=== PATIENT | female | born 2005 | race Two or more races ===

== ENCOUNTER 2024-08-03 08:06 | Emergency (ER) | payer MEDICAID, SELFPAY ==
[2024-08-03 08:17] VITALS: BP 116/82; PULSE 82; RESP 16; TEMP 37.1; O2SAT 99; BMI 21.9
--- NOTE | 2024-08-03 08:19 | PD.EDALLER ---
ED Allergic Reaction RME/HPI General Chief complaint: Allergic Reaction Stated complaint: HIVES/REDNESS/SWELLING TO SCALP Time Seen by Provider: 08/03/24 08:23 Source: patient Arrival date/time: 08/03/24 08:06 19-year-old female with no known medical history presents to the emergency room with a chief complaint of swelling, hives, redness to her scalp. Patient states she dyed her hair yesterday and is having an allergic reaction to the dye. Patient denies any shortness of breath or difficulty breathing. Mode of arrival: ambulatory Limitations: no limitations Related Data Previous Rx's ?Medication ?Instructions ?Recorded acetaminophen 325 mg capsule 650 mg (2 x 325 mg) PO QID PRN 08/03/24 fever or pain 7 days #30 caps diphenhydramine HCl 25 mg capsule 25 mg PO BID PRN itching #7 caps 08/03/24 hydrocortisone acetate-aloe vera 2 1 applic topical BID #60 grams 08/03/24 % lotion Allergies Allergy/AdvReac Type Severity Reaction Status Date / Time ibuprofen Allergy Rash Verified 08/03/24 08:10 Review of Systems Review of Systems Systems Reviewed: All systems reviewed, normal except as documented Constitutional Constitutional: Reports system reviewed and no additional complaints, except as documented, Denies fatigue, Denies fever(s), Denies headache(s) and Denies weakness Eyes Eyes: Reports system reviewed and no additional complaints, except as documented, Denies blurry vision and Denies change in vision ENT Ears, Nose, Mouth, and Throat: Reports system reviewed and no additional complaints, except as documented, Denies otalgia, Denies headache(s), Denies nasal congestion, Denies throat swelling and Denies vertigo Cardiovascular Cardiovascular: Reports system reviewed and no additional complaints, except as documented, Denies chest pain, Denies dyspnea and Denies dyspnea on exertion Respiratory Respiratory: Reports system reviewed and no additional complaints, except as documented, Denies chest congestion, Denies cough, Denies dyspnea, Denies dyspnea on exertion and Denies wheezing Gastrointestinal Gastrointestinal: Reports system reviewed and no additional complaints, except as documented, Denies abdominal pain, Denies cramping, Denies nausea and Denies vomiting Genitourinary Genitourinary: Reports system reviewed and no additional complaints, except as documented Musculoskeletal Musculoskeletal: Reports system reviewed and no additional complaints, except as documented and Denies back pain Integumentary/Breasts Skin/Breast: Reports system reviewed and no additional complaints, except as documented, Reports pruritus, Reports rash and Denies wounds Neurologic Neurologic: Reports system reviewed and no additional complaints, except as documented, Denies confusion, Denies headache(s), Denies lack of coordination, Denies vertigo and Denies weakness Psychiatric Psychiatric: Reports system reviewed and no additional complaints, except as documented, Denies anxiety, Denies confusion, Denies depression, Denies paranoia, Denies suicidal ideation and Denies tactile hallucinations Endocrine Endocrine: Reports system reviewed and no additional complaints, except as documented and Denies fatigue Hematologic/Lymphatic Hematologic/Lymphatic: Reports system reviewed and no additional complaints, except as documented and Denies lymphadenopathy Allergic/Immunologic Allergic/Immunologic: Reports system reviewed and no additional complaints, except as documented, Denies throat swelling, Denies urticaria and Denies wheezing Past Medical History Social History SMOKING STATUS: Never smoker ED Exam General Limitations: Present no limitations General appearance: Present alert and in no apparent distress Head Head exam: Present atraumatic, normocephalic and normal inspection Expanded Head Exam Head exam physical: Present other (Rash to the scalp) Head image: 1. Erythemic, pruritic, rash to the scalp Eye Eye exam: Present normal appearance, PERRL and EOMI ENT ENT exam: Present normal exam, normal oropharynx and mucous membranes moist Neck Neck exam: Present normal inspection, full ROM and trachea midline Chest Chest inspection: Present normal inspection and symmetric chest wall rise Respiratory Respiratory exam: Present normal lung sounds bilaterally Cardiovascular Cardiovascular exam: Present regular rate, normal rhythm and normal heart sounds Abdominal Exam Abdominal exam: Present soft and normal bowel sounds Extremities Exam Extremities exam: Present normal inspection and full ROM Back Exam Back exam: Present normal inspection and full ROM Neurological Exam Neurological exam: Present alert, oriented X3 and CN II-XII intact Psychiatric Psychiatric exam: Present normal affect and normal mood Skin Skin exam: Present warm, dry, intact and normal color Course Quality Measures none Orders Category Date Time Status Dexamethasone Inj [Decadron Inj] Med 08/03/24 08:19 Discontinued 10 mg PO X1 ONE DiphenhydrAMINE [Benadryl] Med 08/03/24 08:19 Discontinued 25 mg PO X1 ONE Famotidine [Pepcid] Med 08/03/24 08:19 Discontinued 20 mg PO X1 ONE Vital Signs Vital signs: Vital Signs Temperature 98.7 F 08/03/24 08:17 Pulse Rate 82 08/03/24 08:17 Respiratory Rate 16 08/03/24 08:17 Blood Pressure 116/82 08/03/24 08:17 Pulse Oximetry (%) 99 08/03/24 08:17 Oxygen Delivery Method Room Air 08/03/24 08:17 O2 saturation within normal limits Allergic Reaction MDM Narrative MDM Narrative:: 19-year-old female with no known medical history presents to the emergency room with a chief complaint of swelling, hives, redness to her scalp. Patient states she dyed her hair yesterday and is having an allergic reaction to the dye. Patient denies any shortness of breath or difficulty breathing. Clinically the patient appears nontoxic in no apparent distress. Physical examination shows an erythemic pruritic rash to the scalp of her head. The patient has clear bilateral lung sounds with no difficulty breathing stridor or any respiratory distress. Antihistamines were given and the patient was reevaluated in 45 minutes with mild improvement to her symptoms however patient states it is no longer itchy. Patient was educated to no longer use this hair dye and to return to the emergency room for any evidence of worsening signs or symptoms. Patient was educated to follow-up with primary care provider the next 24 to 48 hours Patient data External records reviewed:: [facility] previous records Clinical information provided by:: patient Social determinants that could affect healthcare access:: none Patient has the following chronic illnesses:: No chronic illness How is presenting disease/condition affected by chronic disease/condition?: no chronic disease Evaluation data The following diagnostics were reviewed and interpreted by me:: lab results and radiology exam(s) Lab and/or radiology exams considered but not ordered:: Labs and radiology exams considered and ordered Interpretation Summary: N/A Medications / Prescriptions Medications or Prescriptions considered but not ordered:: Medication given Medication administrations:: Medication Administration History Discontinued Medications Dexamethasone Sodium Phosphate (Dexamethasone Sod Phos Inj 10 Mg/Ml Vial) 10 mg PO X1 ONE Stop: 08/03/24 08:20 Last Admin: 08/03/24 08:27 Dose: 10 mg Documented By: MARLY Diphenhydramine HCl (Diphenhydramine Elix 25 Mg/10 [place] [facility] [place] mg PO X1 ONE Stop: 08/03/24 08:20 Last Admin: 08/03/24 08:27 Dose: 25 mg Documented By: MARLY Famotidine (Famotidine 20 Mg Tablet) 20 mg PO X1 ONE Stop: 08/03/24 08:20 Last Admin: 08/03/24 08:26 Dose: 20 mg Documented By: MARLY Medication given Consultations Consultation(s) initiated? (list below): No Diagnosis Differential Diagnosis allergic reaction: allergic reaction, contact dermatitis and urticaria Most likely diagnosis given after review of the tests above:: Contact dermatitis Admission Indicated Admission indicated?: not indicated Admission Request Was there a request for admission?: No Disposition Plan Disposition Plan: Discharge Discharge Attestation Discharge Attestation: The patient and all family members were given an opportunity to ask questions and understood the discharge instructions. Discharge instructions specifically effects, indications for sooner follow up or return to the emergency department, and the expected course of current diagnosis. Patient condition: Stable Discharge Plan Plan Patient Disposition: HOME (Self Care) Disposition Comment: Stable Prescriptions/Referrals Prescriptions/Med Rec: New hydrocortisone acet-aloe vera 2 % lotion 1 applic topical BID Qty: 60 0RF acetaminophen 325 mg capsule 650 mg PO QID PRN (Reason: fever or pain) 7 Days Qty: 30 0RF diphenhydramine HCl 25 mg capsule 25 mg PO BID PRN (Reason: itching) Qty: 7 0RF Referrals: Davidson Schwartz MD [Primary Care Provider] - In 1 week Problem List Clinical Impression: Contact dermatitis Patient/Caregiver Discharge Instructions Education Materials: Understanding Contact Dermatitis, ED Contact Dermatitis Additional Instructions: Please follow-up with your primary care provider in the next 24 to 48 hours. The hair dye that she used caused some contact dermatitis to your scalp. Medication was sent to your pharmacy to help alleviate the symptoms. For any evidence of worsening signs or symptoms return to the emergency room immediately Print Language: Yakut Stand Alone Forms: [employer] Award Info., Patient Portal Info Letter PA/CHACORTA Supervising Physician PA/CHACORTA Supervising Physician: Dr. Inman
[2024-08-03] MEDS: FAMOTIDINE 20 MG TABLET PO (08:26)
[2024-08-03] MEDS: DiphenhydrAMINE ELIX 25 MG/10 ML UDC PO (08:27)
[2024-08-03] MEDS: DEXAMETHASONE SOD PHOS INJ 10 MG/ML VIAL PO (08:27)
== END 2024-08-03 10:43 | disposition home or self-care (01) ==
PROVIDERS: Emergency Provider Emergency Medicine; PCP Family Medicine
DX: L25.9 Unspecified contact dermatitis, unspecified cause (principal)
CPT/HCPCS: 99282; J1100; A9270

== ENCOUNTER 2024-08-03 21:04 | Emergency (ER) | payer MEDICAID, SELFPAY ==
[2024-08-03 21:05] VITALS: BMI 21.9
[2024-08-03 21:48] VITALS: BP 121/78; PULSE 78; RESP 18; TEMP 36.7; O2SAT 98
--- NOTE | 2024-08-03 21:57 | EDNOTE_ITS ---
ED Allergic Reaction RME/HPI General Chief complaint: Allergic Reaction Stated complaint: FU on allergy from this AM: swelling to face Time Seen by Provider: 08/03/24 21:14 Source: patient, family, RN notes reviewed and old records reviewed Arrival date/time: 08/03/24 21:04 Mode of arrival: ambulatory Limitations: no limitations RME / HPI RME / HPI narrative: 19yof presents to ED for allergic reaction to hair dye, evaluated in ED this morning for same complaint. Patient reports swelling now spread to forehead and bilateral eyes. No tongue/throat swelling, shortness of breath or N/V. Benadryl last taken at 1800 with mild relief. Related Data Previous Rx's ?Medication ?Instructions ?Recorded acetaminophen 325 mg capsule 650 mg (2 x 325 mg) PO QID PRN 08/03/24 fever or pain 7 days #30 caps diphenhydramine HCl 25 mg capsule 25 mg PO BID PRN itching #7 caps 08/03/24 diphenhydramine HCl 25 mg capsule 50 mg (2 x 25 mg) PO TID PRN 08/03/24 (Benadryl) itching or rash #30 caps famotidine 20 mg tablet (Pepcid) 40 mg (2 x 20 mg) PO QDAY 1 week 08/03/24 #14 tabs hydrocortisone acetate-aloe vera 2 1 applic topical BID #60 grams 08/03/24 % lotion prednisone 50 mg tablet 50 mg PO QDAY #5 tabs 08/03/24 Allergies Allergy/AdvReac Type Severity Reaction Status Date / Time ibuprofen Allergy Rash Verified 08/03/24 08:10 Review of Systems Review of Systems Systems Reviewed: All systems reviewed, normal except as documented Constitutional Constitutional: Denies chills and Denies fever(s) ENT Ears, Nose, Mouth, and Throat: Denies throat swelling, Denies tongue swelling and Reports other (Reports facial swelling) Cardiovascular Cardiovascular: Denies dyspnea Respiratory Respiratory: Denies dyspnea Gastrointestinal Gastrointestinal: Denies nausea and Denies vomiting Integumentary/Breasts Skin/Breast: Reports erythema, Reports pruritus and Reports rash Allergic/Immunologic Allergic/Immunologic: Denies throat swelling and Denies tongue swelling Past Medical History Surgical History OTHER SURGICAL HX: Denies past surgical history Social History SMOKING STATUS: Never smoker SUBSTANCE USE: does not use ALCOHOL: Never Past Medical History Comments PMH COMMENT: Denies past medical history ED Exam General Limitations: Present no limitations General appearance: Present alert and in no apparent distress Head Head exam: Present atraumatic and normocephalic Eye Eye exam: Present normal appearance, PERRL and EOMI ENT ENT exam: Present normal oropharynx (Airway patent) and other (Mild upper facial swelling) Neck Neck exam: Present normal inspection and full ROM Chest Chest inspection: Present normal inspection and symmetric chest wall rise Respiratory Respiratory exam: Present normal lung sounds bilaterally; Absent respiratory distress, wheezes or stridor Cardiovascular Cardiovascular exam: Present regular rate and normal rhythm Extremities Exam Extremities exam: Present normal inspection and full ROM Neurological Exam Neurological exam: Present alert and oriented X3 Psychiatric Psychiatric exam: Present normal affect and normal mood Skin Skin exam: Present other (Erythema and tiny vesicles surrounding hairline) Course Quality Measures none Orders Category Date Time Status Dexamethasone Inj [Decadron Inj] Med 08/03/24 21:58 Discontinued 10 mg PO X1 ONE DiphenhydrAMINE [Benadryl] Med 08/03/24 21:58 Discontinued 50 mg PO X1 ONE Famotidine [Pepcid] Med 08/03/24 21:58 Discontinued 40 mg PO X1 ONE Vital Signs Vital signs: Vital Signs Temperature 98.1 F 08/03/24 21:48 Pulse Rate 78 08/03/24 21:48 Respiratory Rate 18 08/03/24 21:48 Blood Pressure 121/78 08/03/24 21:48 Pulse Oximetry (%) 98 08/03/24 21:48 Oxygen Delivery Method Room Air 08/03/24 21:48 Allergic Reaction MDM Narrative MDM Narrative:: 19yof presents to ED for allergic reaction to hair dye, evaluated in ED this morning for same complaint. Patient reports swelling now spread to forehead and bilateral eyes. No tongue/throat swelling, shortness of breath or N/V. Benadryl last taken at 1800 with mild relief. Patient reassessed. Symptoms improved after medications administered in ED. Patient is well-appearing, no evidence of airway compromise or respiratory distress. Symptomatic treatment discussed. Will Rx 5-day course of prednisone. Stable for discharge, RTED precautions given Patient data External records reviewed:: [facility] previous records (ED visit 08/03/2024 for contact dermatitis) Clinical information provided by:: patient and parent Social determinants that could affect healthcare access:: none Patient has the following chronic illnesses:: None How is presenting disease/condition affected by chronic disease/condition?: no chronic disease Evaluation data The following diagnostics were reviewed and interpreted by me:: other (specify) (None) Lab and/or radiology exams considered but not ordered:: None Interpretation Summary: na Medications / Prescriptions Medications or Prescriptions considered but not ordered:: No antibiotics recommended at this time Medication administrations:: Medication Administration History Discontinued Medications Dexamethasone Sodium Phosphate (Dexamethasone Sod Phos Inj 10 Mg/Ml Vial) 10 mg PO X1 ONE Stop: 08/03/24 21:59 Last Admin: 08/03/24 22:12 Dose: 10 mg Documented By: Diphenhydramine HCl (Diphenhydramine 25 Mg Capsule) 50 mg PO X1 ONE Stop: 08/03/24 21:59 Last Admin: 08/03/24 22:12 Dose: 50 mg Documented By: Famotidine (Famotidine 20 Mg Tablet) 40 mg PO X1 ONE Stop: 08/03/24 21:59 Last Admin: 08/03/24 22:11 Dose: 40 mg Documented By: Above medications administered in ED Consultations Consultation(s) initiated? (list below): No Diagnosis Differential Diagnosis allergic reaction: anaphylaxis, allergic reaction, angioedema, contact dermatitis, adverse reaction to drug, viral enanthem and urticaria Most likely diagnosis given after review of the tests above:: Contact dermatitis, allergic reaction Admission Indicated Admission indicated?: not indicated Admission Request Was there a request for admission?: No Disposition Plan Disposition Plan: Discharge Discharge Attestation Discharge Attestation: The patient and all family members were given an opportunity to ask questions and understood the discharge instructions. Discharge instructions specifically effects, indications for sooner follow up or return to the emergency department, and the expected course of current diagnosis. Patient condition: Stable Discharge Plan Plan Patient Disposition: HOME (Self Care) Patient condition on transfer: Stable Prescriptions/Referrals Prescriptions/Med Rec: New prednisone 50 mg tablet 50 mg PO QDAY Qty: 5 0RF famotidine [Pepcid] 20 mg tablet 40 mg PO QDAY 7 Days Qty: 14 0RF diphenhydramine HCl [Benadryl] 25 mg capsule 50 mg PO TID PRN (Reason: itching or rash) Qty: 30 0RF No Action hydrocortisone acet-aloe vera 2 % lotion 1 applic topical BID Qty: 60 0RF acetaminophen 325 mg capsule 650 mg PO QID PRN (Reason: fever or pain) 7 Days Qty: 30 0RF diphenhydramine HCl 25 mg capsule 25 mg PO BID PRN (Reason: itching) Qty: 7 0RF Problem List Clinical Impression: Allergic reaction, Contact dermatitis Patient/Caregiver Discharge Instructions Education Materials: ED Contact Dermatitis Additional Instructions: Benadryl 50mg (2 capsules) can be taken every 4 hours as needed for rash or itching. Cool compresses or ice pack can help with the swelling. Print Language: Palestinian Stand Alone Forms: [employer]un Award Info., Patient Portal Info Letter PA/CORPORATE REPRESENTATIVE Supervising Physician PA/CORPORATE REPRESENTATIVE Supervising Physician: [place]
[2024-08-03] MEDS: FAMOTIDINE 20 MG TABLET 40 MG PO (22:11)
[2024-08-03] MEDS: DEXAMETHASONE SOD PHOS INJ 10 MG/ML VIAL PO (22:12)
[2024-08-03] MEDS: DiphenhydrAMINE 25 MG CAPSULE 50 MG PO (22:12)
== END 2024-08-03 23:24 | disposition home or self-care (01) ==
LOC: SERX 23:15
PROVIDERS: Emergency Provider Emergency Medicine
DX: L23.4 Allergic contact dermatitis due to dyes (principal)
CPT/HCPCS: 99282; J1100; A9270

== ENCOUNTER 2024-12-28 13:30 | Outpatient (AMB) | payer MEDICAID, SELFPAY ==
[2024-12-28 13:56] VITALS: BP 108/65; PULSE 89; RESP 16; TEMP 37.2; O2SAT 97; BMI 21.4
--- NOTE | 2024-12-28 13:56 | OBCLNT_ITS ---
Vital Signs 12/28/24 13:56 Height 1.68 m Height Method Stated Weight 60.384 kg Weight Measurement Method Standing Scale BMI 21.4 BP 108/65 Blood Pressure Source Automatic Cuff Blood Pressure Location Right Upper Arm Position Sitting Respiration 16 Pulse 89 Pulse Source Monitor Temp 99 F Temp Source Oral Pulse Oximetry (%) 97 Oxygen Delivery Method Room Air Allergies/Home Meds Allergies & Medications Allergies ibuprofen Allergy (Verified 12/28/24 13:57) Rash Medication Reconciliation diphenhydramine HCl 25 mg capsule 25 mg PO BID PRN itching #7 caps 08/03/24 [Rx Confirmed 12/28/24] diphenhydramine HCl 25 mg capsule (Benadryl) 50 mg (2 x 25 mg) PO TID PRN itching or rash #30 caps 08/03/24 [Rx Confirmed 12/28/24] hydrocortisone acetate-aloe vera 2 % lotion 1 applic topical BID #60 grams 08/03/24 [Rx Confirmed 12/28/24] prednisone 50 mg tablet 50 mg PO QDAY #5 tabs 08/03/24 [Rx Confirmed 12/28/24] Intake Visit Data Collection New Patient or Established: Established Patient (seen at [facility] within 3 years) Reason for Visit:: INITIAL CARE Seen by Clinical Staff ONLY (RN/MA): No Retail Field Representative Required: No Do You Feel Safe at Home: Yes Authorities Contacted: N/A PCP or OBGYN visit in last 3 months: Yes Hx Now: Yes Are you currently on any form of Control: No Last menstrual period: 10/10/24 Pain Present Currently: No Pain Scale Used: Chen-Marrero/Numerical Pain scale:: 0 Smoking Status Smoking Status: Never smoker Questionnaires Covid-19 Vaccine Questionnaire Has patient been vacinated for Covid-19 Have you been vacinated for Covid-19: Yes PHQ-9 PHQ-2 Over the last 2 weeks, how often have you been bothered by any of the following problems? 1. Little interest or pleasure in doing things: not at all 2. Feeling down, depressed, or hopeless: not at all Total score: 0 PHQ-9 3. Trouble falling or staying asleep, or sleeping too much: Not at all 4. Feeling tired or having little energy: Not at all 5. Poor appetite or overeating: Not at all 6. Feeling bad about yourself - or that you are a failure or have let yourself or your family down: Not at all 7. Trouble concentrating on things, such as reading the newspaper or watching television: Not at all 8. Moving or speaking so slowly that other people could have noticed? - Or the opposite - being so fidgety or restless that you have been moving around a lot more than usual: not at all 9. Thoughts that you would be better off or of hurting yourself in some way: Not at all Total score: 0 Source: Developed by Drs. Rosendo Jones, Diane Guzman, Justin Salinas and colleagues, with an educational william from [employer]. Depression screen completed yes Social History Living Situation History Lives With: Family Housing: House Tobacco History Smoking Status: Never smoker Second Hand Smoke Exposure: No Alcohol History Alcohol Intake: Never Domestic Abuse History Do You Feel Safe at Home: Yes History of Present Illness HPI Narrative 19-year-old 1 para 0 for OBI. Patient's last. Was October 10, 2024. Patient reports menses every month. This gives EDC 07/19/2025. Patient is 11 weeks 1. Denies any first trimester discomforts. Patient is taking vitamins. She denies any SAB complaints like bleeding or cramping. She denies any existence of chronic illnesses. Denies any surgeries. Denies social habits. Patient complains of headaches that are improved with Tylenol. This is a planned . Father the baby is involved no other complaints OB Initial Visit OB Flowsheet OB Flowsheet Initial Weight: Not Recorded Date -?-?-?-?-?-?-?-?-?-?-?-?- EGA Weight BP Alb Glu CTX Pres Fundal ht FHR Mov Dilation Station Effacement Hx Notes Visit Note 12/28/24 -?-?-?-?-?-?-?-?-?-?-?-?- 11w 2d 60.384 kg 108/65 absent unknown 11 145 absent c/o headache. improved with tylenol. denies sab complaints. sure dates. no 1st tri discomfort. OB panel and carrier screen today, schedule MFM anatomy scan. discuss sab precaution, increase fluid, rtc 4 week obc Menstrual History Menstrual reliability: definite Flow: normal Menstrual regularity: regular Monthly: Yes Age at menarche: 14 On control pills at conception: No Associated symptoms (LMP): Reports nausea, fatigue and breast tenderness OB History : 1 # of Living Children: 0 Infection History & Risk Evaluation History of STDs: none Genetic Screening & History Genetic Screening/Teratology Counseling - Includes patient, baby's father, or anyone in either family with: 1. Patient's age 35 years or older as of estimated date of delivery: No 2. Thalassemia (Hungarian, Indonesian, Mediterranean, or Background); MCV less than 80: No 3. Neural Tube Defect (Meningomyelocele, Spina Bifida, or Anencephaly): No 4. Congenital Heart Defect: No 5. Down Syndrome: No 6. Lobo-Sachs (Ashkenazi Restoration, Cajun, English [place]): No 7. Johnna Disease (Ashkenazi Restoration): No 8. Familial Dysautonomia (Ashkenazi Restoration): No 9. Sickle Cell Disease or Trait (): No 10. Hemophilia or other blood disorders: No 11. Muscular Dystrophy: No 12. Cystic Fibrosis: No 13. Lonnie's Chorea: No 14. Mental Retardation/Autism: No 15. Other inherited genetic or chromosomal disorder: No 16. Maternal Metabolic Disorder (EG,TYPE 1 Diabetes, PKU): No 17. Patient or baby's father had a child with defects not listed above: No 18. Recurrent loss or a stillbirth: No 19. Medications (including supplements, vitamins, herbs or otc drugs)/illicit/recreational drugs/alcohol since last menstrual period: No 20. Any other: No Infection History 1. Live with someone with TB or exposed to TB: No 2. Rash or viral illness since last menstrual period: No 3. Hepatitis B,C: No Other (see comments) Source: [employer] Review of Systems Review of Systems Systems Reviewed: All systems reviewed, normal except as documented Constitutional Constitutional: Reports fatigue Gastrointestinal Gastrointestinal: Reports nausea Endocrine Endocrine: Reports fatigue Exam General Limitations: no limitations General Appearance: alert, in no apparent distress, comfortable, cooperative, healthy appearing, well developed and well groomed Head Head exam: atraumatic, normocephalic and normal inspection Eye Eye exam: Present normal appearance, PERRL and EOMI ENT ENT exam: Present normal exam, normal oropharynx and mucous membranes moist Neck Neck exam: Present normal inspection, full ROM and trachea midline Chest Chest inspection: Present normal inspection and symmetric chest wall rise Resp Respiratory exam: Present normal lung sounds bilaterally Card Cardiovascular exam: Present regular rate, normal rhythm and normal heart sounds Abdominal Abdominal exam: Present soft and normal bowel sounds Extremities Extremities exam: Present normal inspection and full ROM Back Back exam: Present normal inspection and full ROM Neuro Neurological exam: Present alert, oriented X3 and CN II-XII intact Psych Psychiatric exam: Present normal affect and normal mood Skin Skin exam: Present warm, dry, intact and normal color Office Procedures OB Clinic LOC & Office Proc's Nursing/Assessment Patient Status: Established Patient OB Clinic Nursing Assessment: Medication Reconciliation, Update PMH in EMR and Vital Signs OB Clinic Coordination of Care: Complex Care and Chronic Disease 1-5, Consent,records obtained, informed consent, Education Simp Pt/Fam, Lab and Imaging orders, Results/Orders obtained and Staff clarify orders Special Needs: Heart tones Established Patient Charge Established Patient Point Assignment: 135 Established Patient Point Charge: EP Level 4 (120-155) Assessment & Plan Diagnosis / Problem List (1) Encounter for supervision of normal first , first trimester: Status: Acute (2) High risk case management patient: Status: Acute Plan Discussed SAB precautions. Reviewed dates. Schedule MFM anatomy scan. I ordered OB panel with NIPT and carrier screens. Continue prenatals. Increase fluids. Return in 4 weeks OB Additional Plan Follow Up: 4 Weeks (obc)
== END 2024-12-28 14:56 | disposition home or self-care (01) ==
LOC: HODSOBC 13:30
PROVIDERS: PCP Advanced Practice Midwife; Referring Provider Advanced Practice Midwife; Supervising Provider Advanced Practice Midwife; Visit Provider Advanced Practice Midwife
DX: Z34.01 Encounter for supervision of normal first pregnancy, first trimester (principal); Z3A.11 11 weeks gestation of pregnancy; Z79.52 Long term (current) use of systemic steroids
CPT/HCPCS: 99214; G0463

== ENCOUNTER 2025-04-04 10:47 | Outpatient (AMB) | payer MEDICAID, SELFPAY ==
[2025-04-04 10:58] VITALS: BP 123/70; PULSE 78; RESP 16; TEMP 36.2; O2SAT 98; BMI 21.7
--- NOTE | 2025-04-04 10:58 | OBCLNT_ITS ---
Vital Signs 04/04/25 10:58 Height 1.68 m Height Method Stated Weight 61.235 kg Weight Measurement Method Standing Scale BMI 21.7 BP 123/70 Blood Pressure Source Automatic Cuff Blood Pressure Location Left Upper Arm Position Sitting Respiration 16 Pulse 78 Pulse Source Monitor Temp 97.2 F Temp Source Oral Pulse Oximetry (%) 98 Oxygen Delivery Method Room Air Allergies/Home Meds Allergies & Medications Allergies ibuprofen Allergy (Verified 04/04/25 10:59) Rash Medication Reconciliation diphenhydramine HCl 25 mg capsule 25 mg PO BID PRN itching #7 caps 08/03/24 [Rx Confirmed 04/04/25] diphenhydramine HCl 25 mg capsule (Benadryl) 50 mg (2 x 25 mg) PO TID PRN itching or rash #30 caps 08/03/24 [Rx Confirmed 04/04/25] hydrocortisone acetate-aloe vera 2 % lotion 1 applic topical BID #60 grams 08/03/24 [Rx Confirmed 04/04/25] prednisone 50 mg tablet 50 mg PO QDAY #5 tabs 08/03/24 [Rx Confirmed 04/04/25] Intake Visit Data Collection New Patient or Established: Established Patient (seen at [facility] within 3 years) Reason for Visit:: OBC Seen by Clinical Staff ONLY (RN/MA): No Foreign Language Professor Required: No Do You Feel Safe at Home: Yes Authorities Contacted: N/A PCP or OBGYN visit in last 3 months: Yes Date of Last PCP or OBGYN visit: 12/28/24 Hx Now: Yes Are you currently on any form of Control: No Pain Present Currently: No Pain Scale Used: Chen-Marrero/Numerical Pain scale:: 0 Smoking Status Smoking Status: Never smoker Questionnaires Covid-19 Vaccine Questionnaire Has patient been vacinated for Covid-19 Have you been vacinated for Covid-19: No PHQ-9 PHQ-2 Over the last 2 weeks, how often have you been bothered by any of the following problems? 1. Little interest or pleasure in doing things: not at all 2. Feeling down, depressed, or hopeless: not at all Total score: 0 PHQ-9 3. Trouble falling or staying asleep, or sleeping too much: Not at all 4. Feeling tired or having little energy: Not at all 5. Poor appetite or overeating: Not at all 6. Feeling bad about yourself - or that you are a failure or have let yourself or your family down: Not at all 7. Trouble concentrating on things, such as reading the newspaper or watching television: Not at all 8. Moving or speaking so slowly that other people could have noticed? - Or the opposite - being so fidgety or restless that you have been moving around a lot more than usual: not at all 9. Thoughts that you would be better off or of hurting yourself in some way: Not at all Total score: 0 If you checked off any problems, how difficult have these problems made it for you to do your work, take care of things at home, or get along with other people?: not difficult at all Source: Developed by Drs. Rosendo Jones, Diane Guzman, Justin Salinas and colleagues, with an educational william from [employer] Depression screen completed yes Social History Living Situation History Lives With: Family Housing: House Tobacco History Smoking Status: Never smoker Second Hand Smoke Exposure: No Alcohol History Alcohol Intake: Never Domestic Abuse History Do You Feel Safe at Home: Yes Care OB Visit Log OB Flowsheet Initial Weight: Not Recorded Date -?-?-?-?-?-?-?-?-?-?-?-?- EGA Weight BP Alb Glu CTX Pres Fundal ht FHR Mov Dilation Station Effacement Hx Notes Visit Note 12/28/24 -?-?-?-?-?-?-?-?-?-?-?-?- 11w 2d 60.384 kg 108/65 absent unknown 11 145 absent c/o headache. improved with tylenol. denies sab complaints. sure dates. no 1st tri discomfort. OB panel and carrier screen today, schedule MFM anatomy scan. discuss sab precaution, increase fluid, rtc 4 week obc 04/04/25 -?-?-?-?-?-?-?-?-?-?-?-?- 25w 1d 61.235 kg 123/70 absent unknown 25 140 active Headaches improved. P oor compliance with vitamins and iron. Patient has a follow-up ultrasound at 32 weeks. No OB complaints. Denies leaking, denies bleeding, denies contractions 3 hr gtt. R efill vitamins and start iron twice a day. Increase fluids. Discussed diet and weight gain. Return in 4 weeks OB check QI Calculator Estimated Delivery Date Method Current WG Current Estimate 07/17/25 LMP (Certain) 25w 1d Other Estimates 07/17/25 Ultrasound #1 25w 1d Notes Visit Date: 04/04/25 Last Updated by: Taylor Thompson CNM A+,abs-,rpr;;nr, rub imm, hbsag-,hiv-,HC-, GC/CT-, , NIPT/CF/SMA: pending, 1 hr gtt: 142 sono: 02/27/25: 20wk. EDC: 07/17/25. final QI: 07/17/25 Visit Date: 12/28/24 Last Updated by: Taylor Thompson CNM 19 yo . lmp 10/10/24. EDC 07/19/25. PAP . Office Procedures OB Clinic LOC & Office Proc's Nursing/Assessment Patient Status: Established Patient OB Clinic Nursing Assessment: Medication Reconciliation, Update PMH in EMR and Vital Signs OB Clinic Coordination of Care: Education Complex Pt/Fam, Consent,records obtained, informed consent, Lab and Imaging orders, Results/Orders obtained and Staff clarify orders Special Needs: Heart tones Established Patient Charge Established Patient Point Assignment: 115 Established Patient Point Charge: EP Level 3 (80-115) Assessment & Plan Diagnosis / Problem List (1) Encounter for supervision of high risk in second trimester, antepartum: Status: Acute Plan 3-hour GTT. Discussed diet and weight. labor precautions. Repeat sono for growth at 32 weeks. Return in 4 weeks OB check Additional Plan Follow Up: 4 Weeks (obc)
== END 2025-04-04 11:55 | disposition home or self-care (01) ==
PROVIDERS: Supervising Provider Advanced Practice Midwife; Visit Provider Advanced Practice Midwife
DX: O09.92 Supervision of high risk pregnancy, unspecified, second trimester (principal); Z3A.25 25 weeks gestation of pregnancy; Z91.148 Patient's other noncompliance with medication regimen for other reason; Z88.6 Allergy status to analgesic agent
CPT/HCPCS: 99213; G0463

== ENCOUNTER 2025-04-28 21:39 | Inpatient (IN) | payer MEDICAID, SELFPAY ==
[2025-04-28] VITALS (28 sets, daily range): BP systolic 127; BP diastolic 75; PULSE 69–105; RESP 16–100; TEMP 36.8; O2SAT 93–100; BMI 22.3
--- NOTE | 2025-04-28 22:18 | XR_ITS ---
Examination: Complete OB ultrasound greater than 14 weeks Date and time of exam: April 28, 2025, 1055 hrs. Indications: Abdominal and pelvic pain today Findings: Viable intrauterine single fetus with single amniotic sac presentation cephalic Cardiac motion 137 BPM Placenta fundal grade 1 Umbilical cord insertion seen Amniotic fluid index 13.7 cm Cervix 3.4 cm Ovaries obscured by bowel gas. Composite estimated gestational age based on BPD, head circumference, abdominal circumference, femur length is 29 weeks 0 days Estimated weight 1191 g. Survey of intracranial anatomy, spinal anatomy, abdominal anatomy, four-chamber heart performed with no abnormalities identified. Impression: Viable intrauterine gestation cephalic presentation Placenta fundal grade 1 no abruption Estimated gestational age 29 weeks 0 days.
[2025-04-28 23:09] LABS: Collection Type, Urine Clean Catch
[2025-04-28 23:31] LABS: Bacteria,Urine Rare; Bilirubin,Urine Negative (Negative); Blood,Urine 3+ (Negative); Calcium Oxalate Crystals,Urine 3+; Clarity,Urine Turbid (Clear/Hazy); Glucose, Urine Negative (Negative); Ketones,Urine Negative (Negative); Leukocyte Esterase,Urine Positive (Negative); Nitrite,Urine Negative (Negative); PH,Urine 6.0 (5.0-7.0); Protein,Urine 1+ (Neg - Trace); RBC,Urine 1346 /hpf (0-3); Specific Gravity,Urine 1.025 (1.001-1.035); Squamous Epithelial Cell,Urine 12 /hpf (0-5); Urobilinogen,Urine 2.0 mg/dL (0.0-1.0); WBC,Urine 44 /hpf (0-5)
[2025-04-28 23:33] LABS: Color,Urine Lt-Orange (Lt Yel-Yel)
[2025-04-29] VITALS (20 sets, daily range): BP systolic 103–115; BP diastolic 59–69; PULSE 63–139; RESP 14–17; TEMP 36.7–36.8; O2SAT 92–100
--- NOTE | 2025-04-29 00:14 | XR_ITS ---
Examination: Retroperitoneal ultrasound, complete Technique: Multiple high resolution grayscale images of the retroperitoneum obtained, including kidneys and bladder. Exam date and time:April 29, 2025, 1229 hrs. Indications: Abdominal pain flank pain today Findings: Right kidney 13.0 cm cortex 1.8 cm Mild right hydronephrosis. 7 mm midpole right renal calculus Left kidney 10.9 cm cortex 2.6 cm No hydronephrosis No bladder mass or bladder calculi Bladder prevoid volume 180 cc Impression: Mild right hydronephrosis 7 mm mid right renal calculus
--- NOTE | 2025-04-29 00:20 | ESHP_ITS ---
Documentation for date of: 04/29/25 OB Labor/Induct. HPI History of Present Illness Chief complaint: Contractions and flank pain : 1 Para: 0 Term pregnancies: 0 pregnancies: 0 Living children: 0 History of Abortions: Spontaneous and Elective: 0 History of Vaginal deliveries: 0 History of sections: No History of : No QI: 07/17/25 Gestational Age (weeks): 28 Gestational Age (days): 2 History of present illness: 19-year-old 1 para 0 at 28 weeks and 2 days presented to labor and delivery triage with complaints of severe right flank pain contractions and nausea and vomiting of 1 day duration. Patient reported not taking in enough fluids and very dark and concentrated urine. She denies any contractions or leakage of fluid she did report seeing some blood when wiping after using the restroom. She does report adequate movements. As per her verbal report has been uncomplicated. History of Present Adequate Care: Yes Review of Systems Review of Systems Systems Reviewed: All systems reviewed, normal except as documented Past Medical History Surgical History SURGICAL: Negative Section Meds Home Medications and Allergies Allergies Allergy/AdvReac Type Severity Reaction Status Date / Time ibuprofen Allergy Intermediate Rash Verified 04/28/25 23:25 OB Exam Physical Exam Vital signs: Temp Pulse Resp BP Pulse Ox 98.2 F 86 16 127/75 100 04/28/25 21:58 04/28/25 21:58 04/28/25 21:58 04/28/25 21:58 04/29/25 00:15 Constitutional Constitutional: no acute distress Routine HEENT Exam Head: Present normocephalic and atraumatic Eye: Present EOMI and PERRL ENT: Present mucous membranes moist Routine Neck Exam Neck: Present supple and trachea midline Routine Cardiovascular Exam Cardiovascular: Present RRR Routine Abdominal Exam Abdominal: Present soft and normoactive bowel sounds Routine Extremities Exam Extremities: Present full ROM Routine Skin Exam Skin: Present intact, dry and warm Routine Neurological Exam Neurological: Present alert, oriented X3 and CN II-XII intact Routine Psychiatric Exam Psychiatric: Present normal affect and normal thought process OB Results Labs 04/29/25 04:00 Labs: Urine 04/28/25 Range/Units 22:00 Urine Color Lt-[place] A (Lt Yel-Yel) Urine Clarity Turbid A (Clear/Hazy) Urine pH 6.0 (5.0-7.0) Ur Specific [place] 1.025 (1.001-1.035) Urine Protein 1+ A (Neg - Trace) Urine Glucose (UA) Negative (Negative) OB Assessment & Plan Assessment and Plan (1) Encounter for supervision of high risk in second trimester, antepartum: Status: Acute (2) Pyelonephritis affecting : Status: Acute Assessment and plan: Admit to antepartum service for IV antibiotics and pain management for suspected complicated UTI/pyelonephritis based on clinical symptoms and UA findings Unasyn every 8 hours, p.o. pain medicines for pain management, IV only for breakthrough pain Intermittent monitoring every 6 hours Intensive IV fluid rehydration Discharge depending on clinical course.
[2025-04-29] MEDS: ONDANSETRON INJ 2 MG/ML INJ 2 ML 4 MG IV (01:09)
[2025-04-29] MEDS: DEXTROSE 5%-0.45% NS 1,000 ML 100 ML IV ×2 (01:11→18:44)
[2025-04-29] MEDS: ACETAMINOPHEN IVPB 1,000 MG/100 ML VIAL 250 MG IV (01:21)
--- NOTE | 2025-04-29 01:47 | PRELIM_ITS ---
Renal/Retroperitoneal ultrasound with Doppler. April 29, 2025 at 0029 hours Clinical history: Rule out renal stones. Technique: Duplex scan of bilateral kidneys was performed utilizing 2D grayscale imaging. Comparison: None available at the time of this report. Findings: Right: The right kidney measures 13 cm. There is mild hydronephrosis. Nonobstructing interpolar region renal calculus, measuring 0.7 cm. The corticomedullary differentiation is maintained. Left: The left kidney measures 10.9 cm and is unremarkable. There is no hydronephrosis or renal calculus. The corticomedullary differentiation is maintained. The urinary bladder is unremarkable. Bilateral UVJ jets demonstrated by Doppler. No abnormalities by Doppler. Impression: Nonobstructing right nephrolithiasis. Mild right hydronephrosis. Consider correlation with CT to assess for ureteral stones. Report Electronically Signed By: Chi Aguilar 04/29/2025 1:46:42 AM [EST]
[2025-04-29] MEDS: AMPICILLIN/SULBAC INJ 3 GM in SODIUM CHLORIDE 0.9% (POP) 100 ML IV ×4 (01:53→19:53)
[2025-04-29 04:38] LABS: Basophils # (Auto) 0.1 Thou/mm3 (0.0-0.2); Basophils % (Auto) 0 % (0-2.5); Eosinophils # (Auto) 0.0 Thou/mm3 (0.0-0.5); Eosinophils % (Auto) 0 % (0-10); Hematocrit 32.0 % (36.0-46.0); Hemoglobin 10.9 g/dL (12.0-16.0); Immature Granulocytes Auto 0.09 Thou/mm3 (0.00-0.00); Lymphocytes # (Auto) 1.8 Thou/mm3 (1.0-4.8); Lymphocytes % (Auto) 9 % (10-50); Mean Corpuscular HGB Conc 34.1 g/dl (31.0-37.0); Mean Corpuscular Hemoglobin 31.4 pg (25.0-35.0); Mean Corpuscular Volume 92 fL (80-100); Monocytes # (Auto) 0.8 Thou/mm3 (0.0-0.8); Monocytes % (Auto) 4 % (0-12); Neutrophils # (Auto) 17.6 Thou/mm3 (1.8-7.7); Neutrophils % (Auto) 86 % (37-80); Nucleated Red Blood Cell # 0.00 Thou/mm3 (0.00-0.00); Nucleated Red Blood Cell % 0 /100 WBC (0); Platelet Count 238 Thou/mm3 (140-440); RDW Standard Deviation 45.6 fL (36.4-46.3); Red Blood Count 3.47 Miln/mm3 (4.00-5.20); White Blood Count 20.4 Thou/mm3 (4.5-11.0)
--- NOTE | 2025-04-29 12:19 | PD.LDPN ---
Documentation for date of: 04/29/25 OB Labor Progress Note Pain Control Comments: Patient is a 19-year-old at 28 weeks admitted late last evening for flank pain. She states she has a history of kidney stones. No fevers chills but patient was in quite a bit of pain and had some nausea. She was admitted. Her urine revealed positive leukocyte esterase positive white cells positive red cells urine culture is pending. Patient had an elevated white count on admission of 20.4 with 86% neutrophils. She is admitted on Unasyn. She has been afebrile overnight. Today she is resting comfortably in bed. She has needed IV Tylenol once for pain and Zofran once for nausea. The plan will be to keep the patient utill tomorrow for observation and to await her urine culture results. Pelvic Exam Amniotic membrane status: Intact Contractions Monitor mode: External Contraction frequency: irritability Status status: Category l Assessment and Plan Plan OB labor note: continuous present management Comments: Continue antibiotics. Monitor for pain and fever. Recheck CBC in the morning. Await urine culture.
[2025-04-29] MEDS: DOCUSATE SOD 100 MG CAPSULE PO (20:26)
[2025-04-30] MEDS: AMPICILLIN/SULBAC INJ 3 GM in SODIUM CHLORIDE 0.9% (POP) 100 ML IV ×2 (01:03→06:59)
[2025-04-30 01:08] VITALS: BP 100/58; PULSE 57
[2025-04-30 01:15] VITALS: RESP 16; TEMP 36.9
[2025-04-30 05:12] VITALS: BP 102/56; PULSE 65
[2025-04-30] MEDS: DEXTROSE 5%-0.45% NS 1,000 ML 100 ML IV (05:42)
[2025-04-30 07:08] LABS: Basophils # (Auto) 0.0 Thou/mm3 (0.0-0.2); Basophils % (Auto) 0 % (0-2.5); Eosinophils # (Auto) 0.1 Thou/mm3 (0.0-0.5); Eosinophils % (Auto) 1 % (0-10); Hematocrit 28.0 % (36.0-46.0); Hemoglobin 9.2 g/dL (12.0-16.0); Immature Granulocytes Auto 0.05 Thou/mm3 (0.00-0.00); Lymphocytes # (Auto) 1.5 Thou/mm3 (1.0-4.8); Lymphocytes % (Auto) 14 % (10-50); Mean Corpuscular HGB Conc 32.9 g/dl (31.0-37.0); Mean Corpuscular Hemoglobin 30.4 pg (25.0-35.0); Mean Corpuscular Volume 92 fL (80-100); Monocytes # (Auto) 0.5 Thou/mm3 (0.0-0.8); Monocytes % (Auto) 4 % (0-12); Neutrophils # (Auto) 8.9 Thou/mm3 (1.8-7.7); Neutrophils % (Auto) 81 % (37-80); Nucleated Red Blood Cell # 0.00 Thou/mm3 (0.00-0.00); Nucleated Red Blood Cell % 0 /100 WBC (0); Platelet Count 206 Thou/mm3 (140-440); RDW Standard Deviation 45.6 fL (36.4-46.3); Red Blood Count 3.03 Miln/mm3 (4.00-5.20); White Blood Count 11.1 Thou/mm3 (4.5-11.0)
--- NOTE | 2025-04-30 08:21 | ESPR_ITS ---
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 She has completed over 24 hours of IV antibiotics. She is afebrile. Patient does endorse a personal history of kidney stones. Has not required any IV pain medications. tracing has been appropriate. Exam Vital Signs Temp Pulse Resp BP Pulse Ox O2 Del Method 98.4 F 65 16 102/56 L 100 Room Air 04/30/25 01:15 04/30/25 05:12 04/30/25 01:15 04/30/25 05:12 04/29/25 00:53 04/30/25 01:15 Constitutional Constitutional: no acute distress Routine HEENT Exam Head: Present normocephalic and atraumatic Eye: Present EOMI and PERRL ENT: Present mucous membranes moist Routine Neck Exam Neck: Present supple and trachea midline Routine Respiratory Exam Respiratory: Present chest non-tender, lungs clear, normal breath sounds and no resp distress Routine Cardiovascular Exam Cardiovascular: Present RRR Routine Abdominal Exam Abdominal: Present soft and normoactive bowel sounds Routine Extremities Exam Extremities: Present full ROM Routine Skin Exam Skin: Present intact and dry Routine Neurological Exam Neurological: Present alert, oriented X3 and CN II-XII intact Routine Psychiatric Exam Psychiatric: Present normal affect and normal thought process Urinary Catheter Management Cath placed during this visit: no WOOD MACHINE CARVER - PN: Obj Data Labs 04/30/25 06:14 Labs: Laboratory Results - last 24 hr 04/30/25 06:14 WBC 11.1 H D RBC 3.03 L Hgb 9.2 L Hct 28.0 L MCV 92 MCH 30.4 MCHC 32.9 RDW Std Deviation 45.6 Plt Count 206 D Neut % (Auto) 81 H Lymph % (Auto) 14 [place] % (Auto) 4 Eos % (Auto) 1 Baso % (Auto) 0 Neut # (Auto) 8.9 H Lymph # (Auto) 1.5 [place] # (Auto) 0.5 Eos # (Auto) 0.1 Baso # (Auto) 0.0 Immature Gran # (Auto) 0.05 H Absolute Nucleated RBC 0.00 Immature Gran % 1 H Nucleated RBC % 0 WOOD MACHINE CARVER - A/P Assessment and plan (1) Encounter for supervision of high risk in second trimester, antepartum: Status: Acute (2) Pyelonephritis affecting : Status: Acute Assessment and plan: 19-year-old G1, P0 at 28 weeks and 3 days with pyelonephritis. Plan to discharge home on oral antibiotics. Will monitor for urine culture results and follow-up if needed. Patient counseled about signs of sepsis. She will return to the office for short-term reevaluation in 3 to 5 days. Time Spent With Patient Time: Total time spent is greater than 50% in coordination of care (as documented) at patient's floor/unit and/or counseling patient: Time with patient: less than 15 minutes
--- NOTE | 2025-04-30 08:23 | PD.LDDS ---
DS: Providers Provider Date of admission: 04/30/25 00:39 Primary care physician: Physician No Primary/Family Admitting Provider: Gustavo Mcclure MD Attending Provider on Admission: Gustavo Mcclure MD Attending Provider on DC: Gustavo Mcclure MD Discharging Provider: Gustavo Mcclure MD DS: Diagnosis Discharge Diagnosis (1) Pyelonephritis affecting : Status: Acute (2) Encounter for supervision of high risk in second trimester, antepartum: Status: Acute (3) High risk case management patient: Status: Acute (4) Encounter for supervision of normal first , first trimester: Status: Acute Problem List Completed Was Problem List Reviewed/Reconciled?: Yes Summary/Hosp Course Brief History: Patient comfortable this morning. She has completed over 24 hours of IV antibiotics. She is afebrile. Patient does endorse a personal history of kidney stones. Has not required any IV pain medications. tracing has been appropriate. Time Spent with Patient Time attestation: Total time spent providing and/or coordinating discharge services: Exam Vital Signs Temp Pulse Resp BP Pulse Ox O2 Del Method 98.4 F 65 16 102/56 L 100 Room Air 04/30/25 01:15 04/30/25 05:12 04/30/25 01:15 04/30/25 05:12 04/29/25 00:53 04/30/25 01:15 Discharge Plan Plan Patient Disposition: HOME (Self Care) Patient condition on transfer: Stable Prescriptions/Referrals Prescriptions/Med Rec: New hydrocodone-acetaminophen 5-325 mg tablet 1 tab PO Q6H MDD 4 PRN (Reason: pain) 5 Days Qty: 10 0RF amoxicillin-pot clavulanate 875-125 mg tablet 1 tab PO BID 7 Days Qty: 14 0RF Continued ferrous sulfate 325 mg (65 mg iron) tablet 325 mg PO BID Qty: 60 3RF vit-iron fum-folic ac [ Vitamin with Minerals] 28 mg iron- 800 mcg tablet 1 tab PO QDAY Qty: 60 3RF Referrals: No Primary/Family,Physician [Primary Care Provider] Taylor Thompson CNM [Certified Nurse Cma Or Lpn, ENVIRONMENTAL PROGRAM MANAGER] Patient/Caregiver Discharge Instructions Meds to Beds: Yes Discharge Activity: activity as tolerated Education Materials: Urinary Tract Infections in Women Print Language: South Korean Stand Alone Forms: [employer] Info., Patient Portal Info Letter Planned Discharge Date 04/30/25
[2025-04-30 09:45] VITALS: BP 104/64; PULSE 72
[2025-04-30 09:58] VITALS: TEMP 36.6
== END 2025-04-30 10:05 | disposition home or self-care (01) | DRG 566 ==
PROVIDERS: Obstetrics & Gynecology; Admitting Provider Obstetrics & Gynecology; Visit Provider Obstetrics & Gynecology
DX: O23.03 Infections of kidney in pregnancy, third trimester (principal); Z3A.28 28 weeks gestation of pregnancy; Z87.442 Personal history of urinary calculi
CPT/HCPCS: 36415; 59025; 59899; 76775; 76805; 81001; 85025; 87086; J0131; J0295; J2405; J7042; A9270

== ENCOUNTER 2025-05-02 12:54 | Outpatient (AMB) | payer MEDICAID, SELFPAY ==
--- NOTE | 2025-05-02 12:58 | OBCLNT_ITS ---
Vital Signs 05/02/25 13:02 Height 1.68 m Height Method Stated Weight 64.41 kg Weight Measurement Method Standing Scale BMI 22.8 BP 112/71 Blood Pressure Source Automatic Cuff Blood Pressure Location Right Upper Arm Position Sitting Respiration 17 Pulse 76 Pulse Source Monitor Temp 98.1 F Temp Source Temporal Artery Scan Pulse Oximetry (%) 97 Oxygen Delivery Method Room Air Allergies/Home Meds Allergies & Medications Allergies ibuprofen Allergy (Intermediate, Verified 05/02/25 13:04) Rash Medication Reconciliation ferrous sulfate 325 mg (65 mg iron) tablet 325 mg PO BID #60 tabs 04/04/25 [Rx Confirmed 05/02/25] vitamin-ferrous fumarate 28 mg iron-folic acid 800 mcg tablet ( Vitamins with Minerals) 1 tab PO QDAY #60 tabs 04/04/25 [Rx Confirmed 05/02/25] amoxicillin 875 mg-potassium clavulanate 125 mg tablet 1 tab PO BID 7 days #14 tabs 04/30/25 [Rx Confirmed 05/02/25] docusate sodium 100 mg capsule (Colace) 100 mg PO QDAY 30 days #30 caps 04/30/25 [Rx Confirmed 05/02/25] hydrocodone 5 mg-acetaminophen 325 mg tablet 1 tab PO Q6H PRN pain 5 days #10 tabs 04/30/25 [Rx Confirmed 05/02/25] Intake Visit Data Collection New Patient or Established: Established Patient (seen at [facility] within 3 years) Reason for Visit:: OBC Seen by Clinical Staff ONLY (RN/MA): No Telephone Operator Receptionist Required: No Do You Feel Safe at Home: Yes Authorities Contacted: N/A PCP or OBGYN visit in last 3 months: Yes Date of Last PCP or OBGYN visit: 04/30/25 Hx Now: Yes Are you currently on any form of Control: No Pain Present Currently: No Pain Scale Used: Chen-Marrero/Numerical Pain scale:: 0 Smoking Status Smoking Status: Never smoker Questionnaires Covid-19 Vaccine Questionnaire Has patient been vacinated for Covid-19 Have you been vacinated for Covid-19: No PHQ-9 PHQ-2 Over the last 2 weeks, how often have you been bothered by any of the following problems? 1. Little interest or pleasure in doing things: not at all 2. Feeling down, depressed, or hopeless: not at all Total score: 0 PHQ-9 3. Trouble falling or staying asleep, or sleeping too much: Not at all 4. Feeling tired or having little energy: Not at all 5. Poor appetite or overeating: Not at all 6. Feeling bad about yourself - or that you are a failure or have let yourself or your family down: Not at all 7. Trouble concentrating on things, such as reading the newspaper or watching television: Not at all 8. Moving or speaking so slowly that other people could have noticed? - Or the opposite - being so fidgety or restless that you have been moving around a lot more than usual: not at all 9. Thoughts that you would be better off or of hurting yourself in some way: Not at all Total score: 0 If you checked off any problems, how difficult have these problems made it for you to do your work, take care of things at home, or get along with other people?: not difficult at all Source: Developed by Drs. Rosendo Jones, Diane Guzman, Justin Salinas and colleagues, with an educational william from [employer]. 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 improved with tylenol. denies sab complaints. sure dates. no 1st tri discomfort. OB panel and carrier screen today, schedule MFM anatomy scan. discuss sab precaution, increase fluid, rtc 4 week obc 04/04/25 -?-?-?-?-?-?-?-?-?-?-?-?- 25w 1d 61.235 kg 123/70 absent unknown 25 140 active Headaches improved. Poor compliance with vitamins and iron. Patient has a follow-up ultrasound at 32 weeks. No OB complaints. Denies leaking, denies bleeding, denies contractions 3 hr gtt. R efill vitamins and start iron twice a day. Increase fluids. Discussed diet and weight gain. Return in 4 weeks OB check 05/02/25 -?-?-?-?-?-?-?-?-?-?-?-?- 29w 1d 64.41 kg 112/71 absent unknown 28 135 active No OB complaints. Reports good movement. Denies leaking, bleeding, contractions. Denies any vaginitis complaints and no PIH Declined Tdap. Discussed 3-hour GTT. Advised to start GDM diet. Walk for 40 minutes a day. Continue prenatals. Limited OB sono for growth. And return in 3 weeks OB check QI Calculator Estimated Delivery Date Method Current WG Current Estimate 07/17/25 LMP (Certain) 29w 1d Other Estimates 07/17/25 Ultrasound #1 29w 1d Notes Visit Date: 05/02/25 Last Updated by: Taylor Thompson CNM 05/02: 1 hr gtt high. 3 hr gtt wnl Visit Date: 04/04/25 Last Updated by: Taylor Thompson CNM A+,abs-,rpr;;nr, rub imm, hbsag-,hiv-,HC-, GC/CT-, , NIPT/CF/SMA: pending, 1 hr gtt: 142 sono: 02/27/25: 20wk. EDC: 07/17/25. final QI: 07/17/25 Visit Date: 12/28/24 Last Updated by: Taylor Thompson CNM 19 yo . lmp 10/10/24. EDC 07/19/25. PAP . Office Procedures OBC Clinic LOC & Office Proc's Nursing/Assessment Patient Status: Established Patient OB Clinic Nursing Assessment: Medication Reconciliation, Update PMH in EMR and Vital Signs OB Clinic Coordination of Care: Complex Care and Chronic Disease 1-5, Education Complex Pt/Fam, Consent,records obtained, informed consent, Results/Orders obtained and Staff clarify orders Special Needs: Heart tones Established Patient Charge Established Patient Point Assignment: 125 Established Patient Point Charge: EP Level 4 (120-155) Assessment & Plan Diagnosis / Problem List (1) Encounter for supervision of high risk in third trimester, antepartum: Status: Acute Plan Discussed 3-hour GTT. Discussed GDM diet. Increase activity to walk 40 minutes a day. Discussed labor precautions. Schedule OB sono for size dates and return in 3 weeks OB check Additional Plan Follow Up: 3 Weeks (obc)
[2025-05-02 13:02] VITALS: BP 112/71; PULSE 76; RESP 17; TEMP 36.7; O2SAT 97; BMI 22.8
== END 2025-05-02 13:36 | disposition home or self-care (01) ==
LOC: HODSOBC 12:54
PROVIDERS: Supervising Provider Advanced Practice Midwife; Visit Provider Advanced Practice Midwife
DX: O09.93 Supervision of high risk pregnancy, unspecified, third trimester (principal); Z3A.29 29 weeks gestation of pregnancy; Z28.21 Immunization not carried out because of patient refusal
CPT/HCPCS: 99214; G0463

== ENCOUNTER 2025-05-23 13:02 | Outpatient (AMB) | payer MEDICAID, SELFPAY ==
[2025-05-23 13:07] VITALS: BP 110/73; PULSE 83; RESP 18; TEMP 36.2; O2SAT 97; BMI 22.8
--- NOTE | 2025-05-23 13:07 | OBCLNT_ITS ---
Vital Signs 05/23/25 13:07 Height 1.68 m Height Method Stated Weight 64.58 kg Weight Measurement Method Standing Scale BMI 22.8 BP 110/73 Blood Pressure Source Automatic Cuff Blood Pressure Location Left Upper Arm Position Sitting Respiration 18 Pulse 83 Pulse Source Monitor Temp 97.2 F Temp Source Oral Pulse Oximetry (%) 97 Oxygen Delivery Method Room Air Allergies/Home Meds Allergies & Medications Allergies ibuprofen Allergy (Intermediate, Verified 05/23/25 13:09) Rash Medication Reconciliation ferrous sulfate 325 mg (65 mg iron) tablet 325 mg PO BID #60 tabs 04/04/25 [Rx Confirmed 05/23/25] vitamin-ferrous fumarate 28 mg iron-folic acid 800 mcg tablet ( Vitamins with Minerals) 1 tab PO QDAY #60 tabs 04/04/25 [Rx Confirmed 05/23/25] docusate sodium 100 mg capsule (Colace) 100 mg PO QDAY 30 days #30 caps 04/30/25 [Rx Confirmed 05/23/25] Intake Visit Data Collection New Patient or Established: Established Patient (seen at [facility] within 3 years) Reason for Visit:: OBC Seen by Clinical Staff ONLY (RN/MA): No 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: No Do You Feel Safe at Home: Yes Authorities Contacted: N/A PCP or OBGYN visit in last 3 months: Yes Hx Now: Yes Are you currently on any form of Control: No Pain Present Currently: No Pain Scale Used: Chen-Marrero/Numerical Pain scale:: 0 Smoking Status Smoking Status: Never smoker Immunizations Flu Vaccine in the Last 12 Months: No Flu Vaccine Exclusion Criteria: No Exclusion Criteria Questionnaires Covid-19 Vaccine Questionnaire Has patient been vacinated for Covid-19 Have you been vacinated for Covid-19: No PHQ-9 PHQ-2 Over the last 2 weeks, how often have you been bothered by any of the following problems? 1. Little interest or pleasure in doing things: not at all 2. Feeling down, depressed, or hopeless: not at all Total score: 0 PHQ-9 3. Trouble falling or staying asleep, or sleeping too much: Not at all 4. Feeling tired or having little energy: Not at all 5. Poor appetite or overeating: Not at all 6. Feeling bad about yourself - or that you are a failure or have let yourself or your family down: Not at all 7. Trouble concentrating on things, such as reading the newspaper or watching television: Not at all 8. Moving or speaking so slowly that other people could have noticed? - Or the opposite - being so fidgety or restless that you have been moving around a lot more than usual: not at all 9. Thoughts that you would be better off or of hurting yourself in some way: Not at all Total score: 0 If you checked off any problems, how difficult have these problems made it for you to do your work, take care of things at home, or get along with other people?: not difficult at all Source: Developed by Drs. Rosendo Jones, Diane Guzman, Justin Salinas and colleagues, with an educational william from [employer]. 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 improved with tylenol. denies sab complaints. sure dates. no 1st tri discomfort. OB panel and carrier screen today, schedule MFM anatomy scan. discuss sab precaution, increase fluid, rtc 4 week obc 04/04/25 -?-?-?-?-?-?-?-?-?-?-?-?- 25w 1d 61.235 kg 123/70 absent unknown 25 140 active Headaches improved. Poor compliance with vitamins and iron. Patient has a follow-up ultrasound at 32 weeks. No OB complaints. Denies leaking, denies bleeding, denies contractions 3 hr gtt. R efill vitamins and start iron twice a day. Increase fluids. Discussed diet and weight gain. Return in 4 weeks OB check 05/02/25 -?-?-?-?-?-?-?-?-?-?-?-?- 29w 1d 64.41 kg 112/71 absent unknown 28 135 active No OB complaints. Reports good movement. Denies leaking, bleeding, contractions. Denies a ny vaginitis complaints and no PIH Declined Tdap. Discussed 3-hour GTT. Advised to start GDM diet. Walk for 40 minutes a day. Continue prenatals. Limited OB sono for growth. And return in 3 weeks OB check 05/23/25 -?-?-?-?-?-?-?-?-?-?-?-?- 32w 1d 64.58 kg 110/73 absent unknown 26 135 active Denies contractions. Denies bleeding. Denies leaking. Reports good movement. patient rescheduled, not seen. provider left to delivery Schedule ultrasound at [facility] imaging for growth. Discussed labor precautions and kick count. Patient declined Tdap today but she is going to think about it. Increase fluids and increase proteins and walk. Return 2 weeks QI Calculator Estimated Delivery Date Method Current WG Current Estimate 07/17/25 LMP (Certain) 32w 1d Other Estimates 07/17/25 Ultrasound #1 32w 1d Notes Visit Date: 05/02/25 Last Updated by: Taylor Thompson CNM 05/02: 1 hr gtt high. 3 hr gtt wnl Visit Date: 04/04/25 Last Updated by: Taylor Thompson CNM A+,abs-,rpr;;nr, rub imm, hbsag-,hiv-,HC-, GC/CT-, , NIPT/CF/SMA: pending, 1 hr gtt: 142 sono: 02/27/25: 20wk. EDC: 07/17/25. final QI: 07/17/25 Visit Date: 12/28/24 Last Updated by: Taylor Thompson CNM 19 yo . lmp 10/10/24. EDC 07/19/25. PAP . Office Procedures OBC Clinic LOC & Office Proc's Nursing/Assessment Patient Status: Established Patient OB Clinic Nursing Assessment: Medication Reconciliation, Update PMH in EMR and Vital Signs OB Clinic Coordination of Care: Consent,records obtained, informed consent, Education Simp Pt/Fam, Lab and Imaging orders, Results/Orders obtained and Staff clarify orders Special Needs: Heart tones Established Patient Charge Established Patient Point Assignment: 110 Established Patient Point Charge: EP Level 3 (80-115) Assessment & Plan Diagnosis / Problem List (1) Encounter for supervision of high risk in third trimester, antepartum: Status: Acute Plan Schedule ultrasound for growth at [facility]. Continue vitamins. Kick count twice a day. Discussed Tdap. Patient declined today. Increase calories and proteins. Return in 2 weeks OB check Additional Plan Follow Up: 3 Days (obc) 2 Weeks
== END 2025-05-23 13:34 | disposition home or self-care (01) ==
LOC: HODSOBC 13:02
PROVIDERS: Supervising Provider Advanced Practice Midwife; Visit Provider Advanced Practice Midwife
DX: O09.93 Supervision of high risk pregnancy, unspecified, third trimester (principal); Z3A.32 32 weeks gestation of pregnancy; Z28.21 Immunization not carried out because of patient refusal; Z88.6 Allergy status to analgesic agent
CPT/HCPCS: 99213; G0463

== ENCOUNTER 2025-06-07 13:28 | Outpatient (AMB) | payer MEDICAID, SELFPAY ==
[2025-06-07 13:40] VITALS: BP 111/69; PULSE 85; RESP 18; TEMP 36.9; O2SAT 97; BMI 23.4
--- NOTE | 2025-06-07 13:40 | OBCLNT_ITS ---
Vital Signs 06/07/25 13:40 Height 1.68 m Height Method Stated Weight 66.224 kg Weight Measurement Method Standing Scale BMI 23.4 BP 111/69 Blood Pressure Source Automatic Cuff Blood Pressure Location Right Upper Arm Position Sitting Respiration 18 Pulse 85 Pulse Source Monitor Temp 98.4 F Temp Source Temporal Artery Scan Pulse Oximetry (%) 97 Oxygen Delivery Method Room Air Allergies/Home Meds Allergies & Medications Allergies ibuprofen Allergy (Intermediate, Verified 06/07/25 13:40) Rash Medication Reconciliation ferrous sulfate 325 mg (65 mg iron) tablet 325 mg PO BID #60 tabs 04/04/25 [Rx Confirmed 06/07/25] vitamin-ferrous fumarate 28 mg iron-folic acid 800 mcg tablet ( Vitamins with Minerals) 1 tab PO QDAY #60 tabs 04/04/25 [Rx Confirmed 06/07/25] docusate sodium 100 mg capsule (Colace) 100 mg PO QDAY 30 days #30 caps 04/30/25 [Rx Confirmed 06/07/25] Intake Visit Data Collection New Patient or Established: Established Patient (seen at [facility] within 3 years) Reason for Visit:: OBC Seen by Clinical Staff ONLY (RN/MA): No 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: No Do You Feel Safe at Home: Yes Authorities Contacted: N/A PCP or OBGYN visit in last 3 months: Yes Date of Last PCP or OBGYN visit: 05/23/25 Hx Now: Yes Are you currently on any form of Control: No Pain Present Currently: No Pain Scale Used: Chen-Marrero/Numerical Pain scale:: 0 Smoking Status Smoking Status: Never smoker Immunizations Flu Vaccine in the Last 12 Months: No Flu Vaccine Exclusion Criteria: No Exclusion Criteria Questionnaires Covid-19 Vaccine Questionnaire Has patient been vacinated for Covid-19 Have you been vacinated for Covid-19: No PHQ-9 PHQ-2 Over the last 2 weeks, how often have you been bothered by any of the following problems? 1. Little interest or pleasure in doing things: not at all 2. Feeling down, depressed, or hopeless: not at all Total score: 0 PHQ-9 3. Trouble falling or staying asleep, or sleeping too much: Not at all 4. Feeling tired or having little energy: Not at all 5. Poor appetite or overeating: Not at all 6. Feeling bad about yourself - or that you are a failure or have let yourself or your family down: Not at all 7. Trouble concentrating on things, such as reading the newspaper or watching television: Not at all 8. Moving or speaking so slowly that other people could have noticed? - Or the opposite - being so fidgety or restless that you have been moving around a lot more than usual: not at all 9. Thoughts that you would be better off or of hurting yourself in some way: Not at all Total score: 0 If you checked off any problems, how difficult have these problems made it for you to do your work, take care of things at home, or get along with other people?: not difficult at all Source: Developed by Drs. Rosendo Jones, Diane Guzman, Justin Salinas and colleagues, with an educational william from [employer]. 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 improved with tylenol. denies sab complaints. sure dates. no 1st tri discomfort. OB panel and carrier screen today, schedule MFM anatomy scan. discuss sab precaution, increase fluid, rtc 4 week obc 04/04/25 -?-?-?-?-?-?-?-?-?-?-?-?- 25w 1d 61.235 kg 123/70 absent unknown 25 140 active Headaches improved. Poor compliance with vitamins and iron. Patient has a follow-up ultrasound at 32 weeks. No OB complaints. Denies leaking, denies bleeding, denies contractions 3 hr gtt. R efill vitamins and start iron twice a day. Increase fluids. Discussed diet and weight gain. Return in 4 weeks OB check 05/02/25 -?-?-?-?-?-?-?-?-?-?-?-?- 29w 1d 64.41 kg 112/71 absent unknown 28 135 active No OB complaints. Reports good movement. Denies leaking, bleeding, contractions. Denies any vaginitis complaints and no PIH Declined Tdap. Discussed 3-hour GTT. Advised to start GDM diet. Walk for 40 minutes a day. Continue prenatals. Limited OB sono for growth. And return in 3 weeks OB check 05/23/25 -?-?-?-?-?-?-?-?-?-?-?-?- 32w 1d 64.58 kg 110/73 absent unknown 26 135 active Denies contractions. Denies bleeding. Denies leaking. Reports good movement. patient deann eduled, not seen. provider left to delivery Schedule ultrasound at [facility] for growth. Discussed labor precautions and kick count. Patient declined Tdap today but she is going to think about it. Increase fluids and increase proteins and walk. Return 2 weeks 06/07/25 -?-?-?-?-?-?-?-?-?-?-?-?- 34w 2d 66.224 kg 111/69 absent cephalic 33 135 active Denies contractions. Denies leaking, bleeding. Reports good movement Discussed kick count twice a day. Discussed labor precautions. And we reviewed the ultrasound results. And return in 2 weeks for GBS QI Calculator Estimated Delivery Date Method Current WG Current Estimate 07/17/25 LMP (Certain) 34w 2d Other Estimates 07/17/25 Ultrasound #1 34w 2d 07/28/25 Ultrasound #2 32w 5d 07/17/25 Manual 34w 2d final qi: 06/27 09/20 Notes Visit Date: 05/02/25 Last Updated by: Taylor Thompson CNM 05/02: 1 hr gtt high. 3 hr gtt wnl Visit Date: 04/04/25 Last Updated by: Taylor Thompson CNM A+,abs-,rpr;;nr, rub imm, hbsag-,hiv-,HC-, GC/CT-, , NIPT/CF/SMA: pending, 1 hr gtt: 142 sono: 02/27/25: 20wk. EDC: 07/17/25. final QI: 07/17/25 Visit Date: 12/28/24 Last Updated by: Taylor Thompson CNM 19 yo . lmp 10/10/24. EDC 07/19/25. PAP . Office Procedures OBC Clinic LOC & Office Proc's Nursing/Assessment Patient Status: Established Patient OB Clinic Nursing Assessment: Medication Reconciliation, Update PMH in EMR and Vital Signs OB Clinic Coordination of Care: Complex Care and Chronic Disease 1-5, Education Complex Pt/Fam, Consent,records obtained, informed consent and Staff clarify orders Special Needs: Heart tones Established Patient Charge Established Patient Point Assignment: 120 Established Patient Point Charge: EP Level 4 (120-155) Assessment & Plan Diagnosis / Problem List (1) Encounter for supervision of high risk in third trimester, antepartum: Status: Acute Plan Kick count twice a day. Discussed labor precautions. Patient declined Tdap. Continue prenatals. We discussed ultrasound. Return in 2 weeks for OB check and GBS Additional Plan Follow Up: 2 Weeks (obc)
== END 2025-06-07 14:08 | disposition home or self-care (01) ==
LOC: HODSOBC 13:28
PROVIDERS: Supervising Provider Advanced Practice Midwife; Visit Provider Advanced Practice Midwife
DX: O09.93 Supervision of high risk pregnancy, unspecified, third trimester (principal); Z3A.34 34 weeks gestation of pregnancy; Z28.21 Immunization not carried out because of patient refusal; Z88.6 Allergy status to analgesic agent
CPT/HCPCS: 99214; G0463

== ENCOUNTER 2025-06-21 13:16 | Outpatient (AMB) | payer MEDICAID, SELFPAY ==
--- NOTE | 2025-06-21 13:31 | OBCLNT_ITS ---
Vital Signs 06/21/25 13:41 Height 1.68 m Height Method Stated Weight 66.735 kg Weight Measurement Method Standing Scale BMI 23.6 BP 120/78 Blood Pressure Source Automatic Cuff Blood Pressure Location Left Upper Arm Position Sitting Respiration 18 Pulse 98 Pulse Source Monitor Temp 98.2 F Temp Source Oral Pulse Oximetry (%) 98 Oxygen Delivery Method Room Air Allergies/Home Meds Allergies & Medications Allergies ibuprofen Allergy (Intermediate, Verified 06/21/25 13:39) Rash Medication Reconciliation ferrous sulfate 325 mg (65 mg iron) tablet 325 mg PO BID #60 tabs 04/04/25 [Rx Confirmed 06/21/25] vitamin-ferrous fumarate 28 mg iron-folic acid 800 mcg tablet ( Vitamins with Minerals) 1 tab PO QDAY #60 tabs 04/04/25 [Rx Confirmed 06/21/25] docusate sodium 100 mg capsule (Colace) 100 mg PO QDAY 30 days #30 caps 04/30/25 [Rx Confirmed 06/21/25] Immunizations Immunizations Flu Vaccine in the Last 12 Months: No Flu Vaccine Exclusion Criteria: No Exclusion Criteria Care OB Visit Log OB Flowsheet Initial Weight: Not Recorded Date -?-?-?-?-?-?-?-?-?-?-?-?- EGA Weight BP Alb Glu CTX Pres Fundal ht FHR Mov Dilation Station Effacement Hx Notes Visit Note 12/28/24 -?-?-?-?-?-?-?-?-?-?-?-?- 11w 2d 60.384 kg 108/65 absent unknown 11 145 absent c/o headache. improved with tylenol. denies sab complaints. sure dates. no 1st tri discomfort. OB panel and carrier screen today, schedule MFM anatomy scan. discuss sab precaution, increase fluid, rtc 4 week obc 04/04/25 -?-?-?-?-?-?-?-?-?-?-?-?- 25w 1d 61.235 kg 123/70 absent unknown 25 140 active Headaches improved. Poor compliance with vitamins and iron. Patient has a follow-up ultrasound at 32 weeks. No OB complaints. Denies leaking, denies bleeding, denies contractions 3 hr gtt. R efill vitamins and start iron twice a day. Increase fluids. Discussed diet and weight gain. Return in 4 weeks OB check 05/02/25 -?-?-?-?-?-?-?-?-?-?-?-?- 29w 1d 64.41 kg 112/71 absent unknown 28 135 active No OB complaints. Reports good movement. Denies leaking, bleeding, contractions. Denies any vaginitis complaints and no PIH Declined Tdap. Discussed 3-hour GTT. Advised to start GDM diet. Walk for 40 minutes a day. Continue prenatals. Limited OB sono for growth. And return in 3 weeks OB check 05/23/25 -?-?-?-?-?-?-?-?-?-?-?-?- 32w 1d 64.58 kg 110/73 absent unknown 26 135 active Denies contractions. Denies bleeding. Denies leaking. Reports good movement. patient rescheduled, not seen. provider left to delivery Schedule ultrasound at [facility] ouy imaging for growth. Discussed labor precautions and kick count. Patient declined Tdap today but she is going to think about it. Increase fluids and increase proteins and walk. Return 2 weeks 06/07/25 -?-?-?-?-?-?-?-?-?-?-?-?- 34w 2d 66.224 kg 111/69 absent cephalic 33 135 active Denies contractions. Denies leaking, bleeding. Reports good movement Discussed kick count twice a day. Discussed labor precautions. And we reviewed the ultrasound results. And return in 2 weeks for GBS 06/21/25 -?-?-?-?-?-?-?-?-?-?-?-?- 36w 2d 66.735 kg 120/78 absent cephalic 35 143 active Denies leaking, bleeding, contractions. Reports good movement. No OB complaints GBS today. Discussed kick count twice a day. Discussed labor precautions. Increase fluids. Return in a week OB check QI Calculator Estimated Delivery Date Method Current WG Current Estimate 07/17/25 LMP (Certain) 36w 2d Other Estimates 07/17/25 Ultrasound #1 36w 2d 07/28/25 Ultrasound #2 34w 5d 07/17/25 Manual 36w 2d final qi: 06/27 09/20 Notes Visit Date: 05/02/25 Last Updated by: Taylor Thompson CNM 05/02: 1 hr gtt high. 3 hr gtt wnl Visit Date: 04/04/25 Last Updated by: Taylor Thompson CNM A+,abs-,rpr;;nr, rub imm, hbsag-,hiv-,HC-, GC/CT-, , NIPT/CF/SMA: pending, 1 hr gtt: 142 sono: 02/27/25: 20wk. EDC: 07/17/25. final QI: 07/17/25 Visit Date: 12/28/24 Last Updated by: Taylor Thompson CNM 19 yo . lmp 10/10/24. EDC 07/19/25. PAP . Office Procedures O[facility] Clinic LOC & Office Proc's Nursing/Assessment Patient Status: Established Patient OB Clinic Nursing Assessment: Medication Reconciliation, Update PMH in EMR and Vital Signs OB Clinic Coordination of Care: Consent,records obtained, informed consent, Education Simp Pt/Fam, Lab and Imaging orders, Results/Orders obtained and Staff clarify orders Special Needs: Heart tones Established Patient Charge Established Patient Point Assignment: 110 Established Patient Point Charge: EP Level 3 (80-115) Assessment & Plan Diagnosis / Problem List (1) Encounter for supervision of high risk in third trimester, antepartum: Status: Acute Plan Discussed labor precautions. Kick count twice a day. GBS today. Return in a week OB check Additional Plan Follow Up: 1 Week (obc)
[2025-06-21 13:41] VITALS: BP 120/78; PULSE 98; RESP 18; TEMP 36.8; O2SAT 98; BMI 23.6
== END 2025-06-21 14:40 | disposition home or self-care (01) ==
LOC: HODSOBC 13:16
PROVIDERS: Supervising Provider Advanced Practice Midwife; Visit Provider Advanced Practice Midwife
DX: O09.93 Supervision of high risk pregnancy, unspecified, third trimester (principal); Z3A.36 36 weeks gestation of pregnancy; Z36.85 Encounter for antenatal screening for Streptococcus B; Z88.6 Allergy status to analgesic agent
CPT/HCPCS: 99213; G0463

== ENCOUNTER 2025-06-23 12:51 | Inpatient (IN) | payer MEDICAID, SELFPAY ==
[2025-06-23] VITALS (98 sets, daily range): BP systolic 112–149; BP diastolic 69–92; PULSE 75–135; RESP 16–99; TEMP 36.8–37; O2SAT 93–100; BMI 23.4
--- NOTE | 2025-06-23 13:22 | XR_ITS ---
Examination: Complete OB ultrasound greater than 14 weeks Date and time of exam: June 23, 2025, 1312 hours INDICATIONS: Spontaneous rupture of membranes 12 hours ago Findings: Viable intrauterine single fetus with single amniotic sac presentation cephalic Cardiac motion 150 bpm Placenta posterior grade 2 Umbilical cord insertion seen No amniotic fluid Cervix 2.8 cm Ovaries obscured by bowel gas. Composite estimated gestational age based on BPD, head circumference, abdominal circumference, femur length is 35 weeks 1 day Estimated weight 2459.9 g. Survey of intracranial anatomy, spinal anatomy, abdominal anatomy, four-chamber heart performed with no abnormalities identified. Impression: Viable intrauterine gestation cephalic presentation No amniotic fluid.
--- NOTE | 2025-06-23 13:37 | PD.LDHP ---
Documentation for date of: 06/23/25 OB Labor/Induct. HPI History of Present Illness Chief complaint: Spontaneous rupture of membranes : 1 Para: 0 Term pregnancies: 0 pregnancies: 0 Living children: 0 History of Abortions: Spontaneous and Elective: 0 History of Vaginal deliveries: 0 History of sections: No History of : No Date of last menstrual period: 10/10/24 QI: 07/17/25 Gestational age based on last menstrual period: 36 History of present illness: 19-year-old 1 para 0 at 36 weeks and 4 days with estimated delivery date of 07/17/2025 presents to labor and delivery triage with contractions as well as well as leakage of fluid. Patient was noted to be grossly ruptured on arrival. Patient reports adequate movements, denies any vaginal bleeding. Patient receives care at the [facility] clinic and her records are available for review. History of Present Dating criteria: LMP confirmed by 1st trimester US Adequate Care: Yes Labs Maternal Blood Type: A Pos Labs: Positive: Rubella Titre, Negative: RPR, Hepatitis B, HIV, Chlamydia and Gonorrhea and Unknown: Herpes Type 1, Herpes Type 2, Group Beta Strep and Covid-19 Past Medical History Surgical History SURGICAL: Negative Section Meds Home Medications and Allergies Allergies Allergy/AdvReac Type Severity Reaction Status Date / Time ibuprofen Allergy Intermediate Rash Verified 06/21/25 13:39 OB Exam Physical Exam Vital signs: Temp Pulse Resp BP 98.6 F 96 18 112/75 06/23/25 13:00 06/23/25 13:05 06/23/25 13:00 06/23/25 13:05 Constitutional Constitutional: no acute distress Routine HEENT Exam Head: Present normocephalic and atraumatic Eye: Present EOMI and PERRL ENT: Present mucous membranes moist Routine Neck Exam Neck: Present supple and trachea midline Routine Cardiovascular Exam Cardiovascular: Present RRR Routine Abdominal Exam Abdominal: Present soft and normoactive bowel sounds Detailed Labor and Delivery Exam Dilation (cm): 3 Effacement (%): 80 Cervix position: posterior station: -3 Consistency: firm Presentation: Vertex Baseline heart rate: 145 monitor accelerations: 15x15 monitor decelerations: None shelter variability: Average (6-10) Contraction frequency (min): 5 Contraction intensity: Moderate Routine Extremities Exam Extremities: Present full ROM Routine Skin Exam Skin: Present intact, dry and warm Routine Neurological Exam Neurological: Present alert, oriented X3 and CN II-XII intact Routine Psychiatric Exam Psychiatric: Present normal affect and normal thought process OB Assessment & Plan Assessment and Plan (1) Spontaneous rupture of membranes: Status: Acute Assessment and plan: Admit to inpatient status for spontaneous rupture of membranes/augmentation of labor Betamethasone since she is less than 37 weeks Group B strep unknown, will treat with ampicillin prior to any intervention Ultrasound ordered for estimated weight and presentation Continuous maternal monitoring Pain management as per protocol, patient can have epidural whenever desired Anticipate vaginal delivery
[2025-06-23] MEDS: BETAMET ACET/BETAMET NA PH (Celestone) 6 MG/ML VIAL 12 MG IM (13:47)
[2025-06-23] MEDS: Ampicillin Inj 2,000 MG in SODIUM CHLORIDE 0.9% (POP) 100 ML 200 MG IV (14:05)
[2025-06-23] MEDS: RINGERS LACTATED 1000 ML 1,000 ML 100 ML IV ×3 (14:06→18:02)
[2025-06-23 14:32] LABS: Basophils # (Auto) 0.0 Thou/mm3 (0.0-0.2); Basophils % (Auto) 0 % (0-2.5); Eosinophils # (Auto) 0.0 Thou/mm3 (0.0-0.5); Eosinophils % (Auto) 0 % (0-10); Hematocrit 31.9 % (36.0-46.0); Hemoglobin 10.9 g/dL (12.0-16.0); Immature Granulocytes Auto 0.08 Thou/mm3 (0.00-0.00); Lymphocytes # (Auto) 1.6 Thou/mm3 (1.0-4.8); Lymphocytes % (Auto) 12 % (10-50); Mean Corpuscular HGB Conc 34.2 g/dl (31.0-37.0); Mean Corpuscular Hemoglobin 30.5 pg (25.0-35.0); Mean Corpuscular Volume 89 fL (80-100); Monocytes # (Auto) 0.7 Thou/mm3 (0.0-0.8); Monocytes % (Auto) 5 % (0-12); Neutrophils # (Auto) 11.5 Thou/mm3 (1.8-7.7); Neutrophils % (Auto) 83 % (37-80); Nucleated Red Blood Cell # 0.00 Thou/mm3 (0.00-0.00); Nucleated Red Blood Cell % 0 /100 WBC (0); Platelet Count 229 Thou/mm3 (140-440); RDW Standard Deviation 44.5 fL (36.4-46.3); Red Blood Count 3.57 Miln/mm3 (4.00-5.20); White Blood Count 14.0 Thou/mm3 (4.5-11.0)
[2025-06-23 15:04] LABS: Syphilis Nonreactive (Nonreactive)
[2025-06-23] MEDS: Ampicillin Inj 1,000 MG in SODIUM CHLORIDE 0.9% (Popper) 50 ML 100 MG IV (18:02)
[2025-06-23] MEDS: BENZONATATE 100 MG CAPSULE PO (20:31)
[2025-06-23 20:46] LABS: Amphetamine/Metham Scrn,Ur OB Negative (Negative); Benzoylecgonine Screen, Ur OB Negative (Negative); Opiate Screen,Urine OB Negative (Negative); THC Screen,Urine OB Negative (Negative)
[2025-06-23] MEDS: OXYTOCIN in NS 20 units 20 UNIT/1,000 ML BAG 125 UNIT IV (21:08)
[2025-06-23] MEDS: BENZO/LANO/ALOE (Dermoplast) 60 GM CAN 1 SPRAY TOP (21:14)
[2025-06-23] MEDS: MINERAL OIL 30 ML UDC TOP (21:14)
[2025-06-23] MEDS: TRANEXAMIC ACID 1,000 MG IVPB 1,000 MG/100 ML BAG 200 MG IV ×2 (21:18→23:25)
--- NOTE | 2025-06-23 21:23 | OBDSUM_ITS ---
Data (Ibanez) Data Hx Section: No : 1 Term: 0 : 0 Livin Abortions: Spontaneous & Theraputic: 0 Delivery Data (Ibanez) Labor Data Initiation of labor: Spontaneous Induction/Augmentation Agent: None ROM date: 06/23/25 ROM time: 01:00 Amniotic membrane rupture type: Spontaneous Amniotic fluid description: Clear Delivery Data Onset of labor date: 06/23/25 Onset of labor time: 16:00 Complete dilation date: 06/23/25 Complete dilation time: 20:38 delivery date: 06/23/25 delivery time: 21:08 Placenta delivery date: 06/23/25 Placenta delivery time: 21:09 Stage 1 total time: Labor - Stage 1 Duration 4 hours and 38 minutes Delivered by: darrius Delivery nurse: debbie mcadams rn. [place] nurse: caitlin pimentel rn. Environmental Maintenance Worker at delivery: No Delivery Method Delivery method: Normal Vaginal Delivery Presentation: Vertex Anesthesia Type Anesthesia Type: Epidural Placenta Placenta delivery description: Spontaneous Cord blood sent to lab: Yes cord blood collection: Cord Blood Type Episiotomy Episiotomy description: None Data (Ibanez) Sargeant Data 's gender: Male Identification band number: [id number] weight (gms): 2760 g Weight (pounds): 6 lbs and 1.4 ozs 1 minute: 8 5 minutes: 8
[2025-06-23] MEDS: METHYLERGONOVINE INJ 0.2 MG/ML VIAL IM (22:07)
[2025-06-24 03:00] VITALS: BP 114/73; PULSE 90; RESP 16; TEMP 37; O2SAT 99
[2025-06-24 07:45] VITALS: BP 101/63; PULSE 79; RESP 16; TEMP 37; O2SAT 99
[2025-06-24 08:32] LABS: Basophils # (Auto) 0.1 Thou/mm3 (0.0-0.2); Basophils % (Auto) 0 % (0-2.5); Eosinophils # (Auto) 0.0 Thou/mm3 (0.0-0.5); Eosinophils % (Auto) 0 % (0-10); Hematocrit 30.3 % (36.0-46.0); Hemoglobin 10.2 g/dL (12.0-16.0); Immature Granulocytes Auto 0.24 Thou/mm3 (0.00-0.00); Lymphocytes # (Auto) 1.5 Thou/mm3 (1.0-4.8); Lymphocytes % (Auto) 6 % (10-50); Mean Corpuscular HGB Conc 33.7 g/dl (31.0-37.0); Mean Corpuscular Hemoglobin 30.0 pg (25.0-35.0); Mean Corpuscular Volume 89 fL (80-100); Monocytes # (Auto) 1.1 Thou/mm3 (0.0-0.8); Monocytes % (Auto) 4 % (0-12); Neutrophils # (Auto) 22.3 Thou/mm3 (1.8-7.7); Neutrophils % (Auto) 89 % (37-80); Nucleated Red Blood Cell # 0.00 Thou/mm3 (0.00-0.00); Nucleated Red Blood Cell % 0 /100 WBC (0); Platelet Count 235 Thou/mm3 (140-440); RDW Standard Deviation 45.0 fL (36.4-46.3); Red Blood Count 3.40 Miln/mm3 (4.00-5.20); White Blood Count 25.2 Thou/mm3 (4.5-11.0)
--- NOTE | 2025-06-24 08:50 | PD.LDPPPRG ---
Subjective Subjective Interval history: The patient is a 19-year-old -0-0-1 day #1 status post vaginal delivery by Dr. Mcclure. She delivered 06/23/2025 around 2100. This morning the patient is resting comfortably in bed with the father the baby at bedside. She is holding her baby she is working on breast-feeding. She states the baby was getting frustrated and she gave the baby a bottle. But she will work on this today. She denies heavy bleeding. She denies pain. She is voiding ambulating and tolerating a general diet. She will stay till tomorrow because she delivered late in the evening. Exam Vital Signs Temp Pulse Resp BP Pulse Ox O2 Del Method 98.6 F 79 16 101/63 99 Room Air 06/24/25 07:45 06/24/25 07:45 06/24/25 07:45 06/24/25 07:45 06/24/25 07:45 06/24/25 07:45 Narrative Exam Patient is alert and orient x 3. She is pleasant cooperative and in no apparent distress. Objective Labs 06/24/25 07:56 Labs: Laboratory Results - last 24 hr 06/23/25 06/23/25 06/23/25 13:14 14:10 19:30 WBC 14.0 H RBC 3.57 L Hgb 10.9 L Hct 31.9 L MCV 89 MCH 30.5 MCHC 34.2 RDW Std Deviation 44.5 Plt Count 229 Neut % (Auto) 83 H Lymph % (Auto) 12 [place] % (Auto) 5 Eos % (Auto) 0 Baso % (Auto) 0 Neut # (Auto) 11.5 H Lymph # (Auto) 1.6 [place] # (Auto) 0.7 Eos # (Auto) 0.0 Baso # (Auto) 0.0 Immature Gran # (Auto) 0.08 H Absolute Nucleated RBC 0.00 Immature Gran % 1 H Nucleated RBC % 0 Membrane Rupture Cancelled Urine Opiates Screen Negative U Amphetamin/Meth Scrn Negative U Cocaine Metab Screen Negative U Marijuana (THC) Screen Negative Syphilis Serology Nonreactive Blood Type A Positive Antibody Screen NEGATIVE Blood Bank Wristband ID Yes 06/24/25 07:56 WBC 25.2 H D RBC 3.40 L Hgb 10.2 L Hct 30.3 L MCV 89 MCH 30.0 MCHC 33.7 RDW Std Deviation 45.0 Plt Count 235 Neut % (Auto) 89 H Lymph % (Auto) 6 L [place] % (Auto) 4 Eos % (Auto) 0 Baso % (Auto) 0 Neut # (Auto) 22.3 H Lymph # (Auto) 1.5 [place] # (Auto) 1.1 H Eos # (Auto) 0.0 Baso # (Auto) 0.1 Immature Gran # (Auto) 0.24 H Absolute Nucleated RBC 0.00 Immature Gran % 1 H Nucleated RBC % 0 Membrane Rupture Urine Opiates Screen U Amphetamin/Meth Scrn U Cocaine Metab Screen U Marijuana (THC) Screen Syphilis Serology Blood Type Antibody Screen Blood Bank Wristband ID Assessment & Plan Problem List (1) Spontaneous rupture of membranes: Status: Acute (2) care following vaginal delivery: Problem details: Patient is doing well. Recheck CBC in the morning as her white count is elevated at 25. Patient has not had any fevers. Routine care. Status: Acute Time Spent With Patient Time: Total time spent is greater than 50% in coordination of care (as documented) at patient's floor/unit and/or counseling patient: Time with patient: less than 15 minutes
[2025-06-24] MEDS: DOCUSATE SOD 100 MG CAPSULE PO (08:54)
[2025-06-24 12:00] VITALS: BP 102/65; PULSE 87; RESP 16; TEMP 36.8
[2025-06-24 15:52] VITALS: BP 109/68; PULSE 77; RESP 14; TEMP 37.2
[2025-06-24 20:00] VITALS: BP 102/69; PULSE 83; RESP 16; TEMP 36.8; O2SAT 96
[2025-06-25 03:43] VITALS: BP 108/73; PULSE 70; RESP 18; TEMP 36.8; O2SAT 99
[2025-06-25 05:35] LABS: Basophils # (Auto) 0.1 Thou/mm3 (0.0-0.2); Basophils % (Auto) 0 % (0-2.5); Eosinophils # (Auto) 0.0 Thou/mm3 (0.0-0.5); Eosinophils % (Auto) 0 % (0-10); Hematocrit 29.6 % (36.0-46.0); Hemoglobin 9.8 g/dL (12.0-16.0); Immature Granulocytes Auto 0.11 Thou/mm3 (0.00-0.00); Lymphocytes # (Auto) 3.4 Thou/mm3 (1.0-4.8); Lymphocytes % (Auto) 21 % (10-50); Mean Corpuscular HGB Conc 33.1 g/dl (31.0-37.0); Mean Corpuscular Hemoglobin 30.2 pg (25.0-35.0); Mean Corpuscular Volume 91 fL (80-100); Monocytes # (Auto) 0.9 Thou/mm3 (0.0-0.8); Monocytes % (Auto) 6 % (0-12); Neutrophils # (Auto) 11.4 Thou/mm3 (1.8-7.7); Neutrophils % (Auto) 72 % (37-80); Nucleated Red Blood Cell # 0.00 Thou/mm3 (0.00-0.00); Nucleated Red Blood Cell % 0 /100 WBC (0); Platelet Count 254 Thou/mm3 (140-440); RDW Standard Deviation 46.6 fL (36.4-46.3); Red Blood Count 3.24 Miln/mm3 (4.00-5.20); White Blood Count 15.9 Thou/mm3 (4.5-11.0)
[2025-06-25 07:37] VITALS: BP 116/74; PULSE 70; RESP 16; TEMP 36.6; O2SAT 96
--- NOTE | 2025-06-25 08:32 | ESDS_ITS ---
DS: Providers Provider Date of admission: 06/23/25 14:23 Primary care physician: Physician No Primary/Family Admitting Provider: Gustavo Mcclure MD Attending Provider on Admission: Gustavo Mcclure MD Consults: 06/23/25 21:38 Referral Routine Comment: Attending Provider on DC: Bev Padilla MD Discharging Provider: Bev Padilla MD DS: Diagnosis Discharge Diagnosis (1) care following vaginal delivery: Status: Acute (2) Vaginal delivery: Status: Acute Problem List Completed Was Problem List Reviewed/Reconciled?: Yes Summary/Hosp Course Brief History: 19-year-old 1 para 0 at 36 weeks and 4 days with estimated delivery date of 07/17/2025 presents to labor and delivery triage with contractions as well as well as leakage of fluid. Patient was noted to be grossly ruptured on arrival. Patient reports adequate movements, denies any vaginal bleeding. Patient receives care at the [facility] clinic and her records are available for review. Peripartum Data Delivery Method: Normal Vaginal Delivery Episiotomy Description: None Status at Discharge Cognitive/behavioral status at discharge: alert x3 chest clear CVS RRR NO thyromegaly Uterus is nontender Uterus is firm/ appropriate size Just below the umbilicus Bowel sounds present Abdomen soft no hernias noted/no CVAT No calf tenderness Edema mild lochia normal Functional status at discharge: independent ambulation Overall status at discharge: patient is progressing back to baseline Time Spent with Patient Time attestation: Total time spent providing and/or coordinating discharge services: Time spent: Less than 30 minutes Exam Vital Signs Temp Pulse Resp BP Pulse Ox O2 Del Method 98 F 70 16 116/74 96 Room Air 06/25/25 07:37 06/25/25 07:37 06/25/25 07:37 06/25/25 07:37 06/25/25 07:37 06/25/25 07:37 Narrative Exam Patient had a normal vaginal delivery. care routine. She is doing well, VSS alert and oriented/normal insight and judgment/denies depression or anxiety No chest pain No shortness of breath No fever Back pain manageable/denies Moving all extremities No calf pain Ambulating pain managed by Tylenol and Motrin, normal Lochia average Voiding spontaneously Other medical issues none Other concerns none Planning to breast-feed/bottle Feed// likely both Counseled on breast-feeding Counseled on care and follow-up Discharge Plan Plan Patient Disposition: HOME (Self Care) Prescriptions/Referrals Prescriptions/Med Rec: New docusate sodium [Stool Softener] 100 mg capsule 100 mg PO QDAY 30 Days Qty: 30 0RF ibuprofen 600 mg tablet 600 mg PO Q6H MDD 4 PRN (Reason: fever or pain) 10 Days Qty: 40 0RF clindamycin phosphate 1 % lotion 1 applic topical BID 7 Days Qty: 60 0RF Rx Instructions: Apply to vaginal repair area Continued ferrous sulfate 325 mg (65 mg iron) tablet 325 mg PO BID Qty: 60 3RF vit-iron fum-folic ac [ Vitamin with Minerals] 28 mg iron- 800 mcg tablet 1 tab PO QDAY Qty: 60 3RF docusate sodium [Colace] 100 mg capsule 100 mg PO QDAY 30 Days Qty: 30 3RF Referrals: No Primary/Family,Physician [Primary Care Provider] Patient/Caregiver Discharge Instructions Discharge Activity: activity as tolerated Other Discharge Activity Instructions:: pelvic rest x 6 weeks / follow up with her ob in 4 to 6 weeks Education Materials: After a Vaginal , After Delivery Concerns, Breast Care After , : Caring for Yourself Print Language: Hebrew Activity Restrictions/Additional Instructions: pelvic rest x 6 weeks / follow up with her ob in 4 to 6 weeks Stand Alone Forms: [employer]un Award Info., Patient Portal Info Letter Vaccines Vaccines Given During Stay: Influenza and TDaP Discharge Order Discharge Orders: Discharge (Routine); Ordered 06/25/25 Ordered By: Bev Padilla Planned Discharge Date 06/25/25
[2025-06-25] MEDS: DOCUSATE SOD 100 MG CAPSULE PO (08:57)
[2025-06-25] MEDS: DIPHTH,PERTUSS(ACELL),TET VAC 0.5 ML SYR- ADULT IMi (12:42)
--- NOTE | 2025-06-25 15:55 | PC.SS ---
personal care worker (EMILIE) Ashanti met with the patient, partner, and family at the bedside following a social service navajo for resources. SW introduced self, role, and reason for the consult. Patient is alert and oriented to person, place, time, and situation. Patient verbally agreed to participate in the assessment with the partner/family at the bedside. Patient presented with good eye contact, cooperative, and appropriate. Patient designated her mother, Abigail Davison, , as her surrogate medical decision maker. Patient is Ya Davison, 19 y/o [place]an-speaking female residing with family at [address] [place] [address]. Patient is independent and able to attend to her ADLs. Patient has [employer]. Patient has no history of mental health issues or substance abuse. No history of abuse/neglect. Patient has no hx or involvement with CWS. Patient received care at [facility] clinic. Patient delivered a baby boy, Joseph Davison, the patient's first baby. Baby's father is the patient's partner, Cole Swann, who is present in the room and involved in the baby's care. Patient is already connected with [place]; patient was advised to follow up with them to update them on the baby's . The patient was also advised to follow up with [employer] to request insurance for the baby. Patient has a car seat at bedside and all baby necessities at bedside. Discharge plan: Patient will be discharged home with partner support. Partner will provide transportation?no needs at this time. EMILIE provided community resources and the [facility].
[2025-06-25 16:01] VITALS: BP 100/63; PULSE 86; RESP 16; TEMP 36.9; O2SAT 100
== END 2025-06-25 16:30 | disposition home or self-care (01) | DRG 560 ==
LOC: S4SX 14:22 → S4NX 06-24 05:31 → S4SX 06-27 06:29 → S4NX 06-27 06:29
PROVIDERS: Obstetrics & Gynecology; Admitting Provider Obstetrics & Gynecology; Visit Provider Obstetrics & Gynecology
DX: O42.013 Preterm premature rupture of membranes, onset of labor within 24 hours of rupture, third trimester (principal); Z3A.36 36 weeks gestation of pregnancy; Z37.0 Single live birth; Z23 Encounter for immunization
CPT/HCPCS: 36415; 59025; 59409; 76805; 80307; 84112; 85025; 86780; 86850; 86900; 86901; 90686; 90715; 94762; J0290; J0702; J2210; J2590; J2795; J3010; J3490; J7050; J7120; A9270; J9060